=== PATIENT | male | born 1950 | race Caucasian/White ===

== ENCOUNTER → 2017-05-13 | Outpatient (CLI) | payer BC ==
[~2017-05-13] MED LIST: ANT25 PO; ASPCH81 PO; ENOX40IN SC; OXYC-57 PO
[2017-05-13 17:04] LABS: BASO % 0.3 %; BASO ABS # 0.02 K/uL (0-0.2); COMPLETE YES; EOS % 1.1 %; HEMATOCRIT 44.3 % (42-52); IG% 0.3 %; LYMPH % 24.9 %; LYMPH ABS # 1.58 K/uL (1.2-3.4); MEAN CELL VOLUME 94.3 fL (80-100); MEAN CORPUSCULAR HGB CONC 36.1 g/dl (32-36); MONO % 9.1 %; NEUT % 64.3 %; PLATELET COUNT 239 K/uL (130-400); WHITE BLOOD COUNT 6.35 K/uL (4.8-10.8)
[2017-05-13 17:17] LABS: BLOOD UREA NITROGEN 16 mg/dl (7-18); BUN/CREATININE RATIO 16.4 (10-20); CALCIUM 9.7 mg/dl (8.5-10.1); CARBON DIOXIDE 30 mmol/L (21-32); CHLORIDE 105 mmol/L (98-107); GLUCOSE 87 mg/dl (70-99); POTASSIUM 4.5 mmol/L (3.5-5.1); SODIUM 139 mmol/L (136-145)
[2017-05-13 20:28] LABS: LYME DISEASE AB IGG NEG (NEG); LYME DISEASE AB IGM NEG (NEG)
--- NOTE | 2017-05-17 12:24 | CODING QUERY MEDICAL NECESSITY ---
SUPPORTING DIAGNOSIS NEEDED A supporting diagnosis is required for the test/procedure performed on this patient in order for us to be reimbursed by the patient's insurance. Please provide a supporting diagnosis for the following test/procedure listed below next to the test name along with your signature. *If there is no additional diagnosis for this patient that would support the following test/procedure please document that below next to the test/procedure. Test(s)/Procedure(s) that require a supporting diagnosis: * VITAMIN B12 DIAGNOSIS: Provider Signature: Date: Thank you Rosa [place] [employer] Once completed, please kindly fax back to [phone] For questions please call [phone]
== END | disposition home or self-care (01) ==
LOC: C.LABBC 14:36
PROVIDERS: ATTEND Physician Assistant Medical
DX: R53.83 Other fatigue (principal)

== ENCOUNTER → 2017-11-28 | Outpatient (CLI) | payer BC ==
--- NOTE | 2017-11-28 11:38 | DIAGNOSTIC IMAGING REPORT ---
CHEST 2 VIEWS ROUTINE CLINICAL HISTORY: Atypical chest pain COMPARISON STUDY: 02/25/2008 FINDINGS: The cardiac and mediastinal contours are normal. There is no evidence of focal pulmonary consolidation. There is no evidence of failure. No pleural effusions are visualized.[ There is mild aortic tortuosity. There is a mild pectus deformity. IMPRESSION: No active disease in the chest. Electronically signed by: Albert Allen M.D. 11/28/2017 11:36 AM Dictated Date/Time: 11/28/2017 11:36 AM
== END | disposition home or self-care (01) ==
LOC: C.RADBC 11:20
PROVIDERS: ATTEND Nurse Practitioner Adult Health
DX: R07.9 Chest pain, unspecified (principal)

== ENCOUNTER 2023-10-09 19:25 | Inpatient (IN) ==
--- NOTE | 2023-10-09 19:36 | ED Triage Note ---
Date of Service October 09, 2023 Provider in Triage Author: Rick Marion History of Present Illness This patient was briefly evaluated while in triage. An abbreviated physical exam was performed. This patient is a 72-year-old Male who presents to the ED for evaluation of abdominal pain and cramping. No fever, but has felt cold. Symptoms started this morning after breakfast. No hx of abdominal surgery. Complains of vague shoulder pain b/l as well. No issues with ROM. Physical Exam Limited Triage Exam: VITALS: Vitals are noted on the nurse's note and reviewed by myself. Vital signs stable. GENERAL: Well-developed, well-nourished, white male, who is in no acute distress and resting comfortably. Patient is cooperative with the examination. HEART: Regular rate and rhythm without murmurs gallops or rubs. LUNGS: Clear to auscultation bilaterally without wheezes, rales or rhonchi. No retractions or accessory muscle use. NEURO: Patient was alert and oriented to person place and time. CN II through XII grossly intact. Initial orders for labs and / or imaging were placed and patient was placed in the waiting area until a bed is available. Please see further documentation for the full ED course. MDM / Impression Impression Impression: Intra-abdominal free air of unknown etiology, Lower abdominal pain, History of diverticulitis
[2023-10-09 20:04] LABS: Basophils # (auto) 0.04 K/uL (0.00-0.20); Basophils % (auto) 0.3 %; Eosinophils # (auto) 0.47 K/uL (0.00-0.50); Hematocrit (blood only) 44.6 % (42.0-52.0); Immature Granulocytes # (auto) 0.07 K/uL (0.01-0.20); Immature Granulocytes % (auto) 0.4 %; Lymphocytes # (auto) 0.79 K/uL (1.20-3.40); Mean Corpuscular Hemoglobin 33.9 pg (25.0-34.0); Mean Corpuscular Hgb Conc 35.9 g/dL (32.0-36.0); Mean Corpuscular Volume 94.5 fL (80.0-100.0); Mean Platelet Volume 9.3 fL (9.4-12.4); Monocytes # (auto) 0.86 K/uL (0.11-0.59); Monocytes % (auto) 5.4 %; Neutrophils # (auto) 13.57 K/uL (1.40-6.50); Neutrophils % (auto) 85.9 %; Platelet Count 238 K/uL (130-400); RDW Coefficient of Variation 11.8 % (11.5-14.5); Red Blood Count 4.72 M/uL (4.70-6.10)
[2023-10-09] MEDS ORDERED: SODIUM CHLORIDE 0.9% 1,000 ML IV ONE (20:07)
[2023-10-09 20:16] LABS: Albumin Globulin Ratio 1.5 (0.9-2); Albumin Level 4.5 gm/dl (3.4-5.0); BUN Creatinine Ratio 16.1 (10-20); Bilirubin,Total 0.7 mg/dl (0.2-1.0); Calcium 9.6 mg/dl (8.6-10.3); Creatinine Clr Calc Pharmacy 84.1 ml/min; Est GFR (African American) 101.3 ml/min; Est GFR (Non-African American) 87.4 ml/min; Potassium 3.8 mmol/L (3.5-5.1); Total Protein 7.5 gm/dl (6.0-8.3)
[2023-10-09] MEDS ORDERED: OPTIRAY 320 500ml IV ONE (20:31)
[2023-10-09 20:35] LABS: Bilirubin Direct 0.1 mg/dl (0-0.2)
--- NOTE | 2023-10-09 21:04 | CT Scan Report ---
Exam(s): CT ABDOMEN + PELVIS With Contrast IV Amt: 87 ml optiray 320 EXAM: CT Abdomen and Pelvis With Intravenous Contrast CLINICAL HISTORY: Reason for exam: abd pain. TECHNIQUE: Axial computed tomography images of the abdomen and pelvis with intravenous contrast. CTDI is 22.9 mGy and DLP is 1064.34 mGy-cm. Automated exposure control was utilized for the study. A dose lowering technique was utilized adhering to the principles of ALARA. CONTRAST: Patient received 87 ml optiray 320 of IV contrast COMPARISON: No relevant prior studies available. FINDINGS: Lung bases: Unremarkable. No mass. No consolidation. ABDOMEN: Liver: Unremarkable. No mass. Gallbladder and bile ducts: Unremarkable. No calcified stones. No ductal dilation. Pancreas: Unremarkable. No mass. No ductal dilation. Spleen: Unremarkable. No splenomegaly. Adrenals: Unremarkable. No mass. Kidneys and ureters: Renal cysts. No hydronephrosis. Stomach and bowel: Unremarkable. No obstruction. No mucosal thickening. PELVIS: Appendix: No findings to suggest acute appendicitis. Bladder: Unremarkable. No mass. Reproductive: Unremarkable as visualized. ABDOMEN and PELVIS: Intraperitoneal space: Free air in the abdomen, concerning for gastrointestinal perforation, given the absence of recent surgery. The site of perforation is suspected to be within the sigmoid colon (series 2 image 63). No significant fluid collection. Bones/joints: Degenerative changes of the spine. No acute fracture. No dislocation. Soft tissues: Unremarkable. Vasculature: Atherosclerotic changes of the aorta. No abdominal aortic aneurysm. Lymph nodes: Unremarkable. No enlarged lymph nodes. IMPRESSION: Free air in the abdomen, concerning for gastrointestinal perforation, given the absence of recent surgery. The site of perforation is suspected to be within the sigmoid colon (series 2 image 63). Electronically signed by: Terrell Watkins MD 10/09/23 21:03 PM
[2023-10-09 21:41] LABS: Adenovirus PCR Not Detected (NotDetected); Bordetella parapertussis PCR Not Detected (NotDetected); Bordetella pertussis PCR Not Detected (NotDetected); Chlamydia pneumoniae PCR Not Detected (NotDetected); Coronavirus 229E PCR Not Detected (NotDetected); Coronavirus CoV-2 (COVID19)PCR Not Detected (NotDetected); Coronavirus HKU1 PCR Not Detected (NotDetected); Coronavirus NL63 PCR Not Detected (NotDetected); Coronavirus OC43PCR Not Detected (NotDetected); Human Metapneumovirus PCR Not Detected (NotDetected); Influenza A PCR Not Detected (NotDetected); Influenza B PCR Not Detected (NotDetected); Mycoplasma pneumoniae PCR Not Detected (NotDetected); Parainfluenza Virus 1 PCR Not Detected (NotDetected); Parainfluenza Virus 2 PCR Not Detected (NotDetected); Parainfluenza Virus 3 PCR Not Detected (NotDetected); Parainfluenza Virus 4 PCR Not Detected (NotDetected); Respiratory Syncytial VirusPCR Not Detected (NotDetected); Rhinovirus/Enterovirus PCR Not Detected (NotDetected)
[2023-10-09 21:51] LABS: Appearance Urine Clear (Clear); Bilirubin Urine Negative (Negative); Blood Urine Negative (Negative); Color Urine Yellow; Glucose Urine UA Negative (Negative); Ketones Urine Negative (Negative); Leukocyte Esterase Urine Negative (Negative); Nitrite Urine Negative (Negative); Protein Urine Negative (Negative); Specific Gravity Urine 1.024 (1.000-1.030); Urobilinogen Urine Negative (Negative)
[2023-10-09] MEDS ORDERED: PIPERACILLIN/TAZOBACTAM 4.5 GM/100 ML BAG IV ONE (22:03)
[2023-10-09] MEDS ORDERED: MoRPHine SULFATE 4 MG/ML 1 ML CARP\\VIAL IV STA (22:48)
[2023-10-09] MEDS ORDERED: ACETAMINOPHEN 1,000 MG/100 ML VIAL IV STA (22:48)
[2023-10-09] MEDS ORDERED: ONDANSETRON INJ 2 MG/ML 2 ML VIAL IV PRN (22:51)
--- NOTE | 2023-10-09 23:33 | History & Physical Report ---
Date of Service October 09, 2023 Assessment & Plan (1) Intra-abdominal free air of unknown etiology: Plan: Discussed that the most likely source is his sigmoid colon. Currently, he does not have peritoneal signs on exam and pain level is mild (3/10) without zoya cotics. We discussed that generally surgical intervention is recommended for free air due to the risk of continued leakage. However, this operation would most likely result in a colostomy for 3-6 months after which another surgery would be needed to reconnect the ends. Risks of surgery including bleeding, infection, abscess formation, hernia, injury to other structures reviewed. We reviewed that surgical intervention is the more conservative option as it is guaranteed to take care of the leakage. The option of antibiotics alone was also reviewed. Understands that this may not work (he may get sicker and still require surgical intervention). We reviewed that his clinical exam, pain level and lab work would be monitored. If he continued to worsen, he would need surgery and a delay in surgery could increase the risk of complications such as infection or a more prolonged recovery. We discussed that we may not know how he responds for 1-2 days. Reviewed that, as he has no peritoneal signs on exam and mild pain, it is possible the leak has sealed and that antibiotics alone may work. All questions answered. After discussion, he prefers to try antibiotics first. Will admit, make npo, IVF resuscitation, monitor labs. Dr. Del Rio to take over tomorrow. History of Present Illness Chief Complaint: abdominal pain Primary Care Provider: Jeremy Del Rio DO 72 yr old man with history of constipation and diverticulitis presents with acute onset of generalized abdominal pain, worse in left lower quadrant which started this morning after eating. Notes he has been more tender on the left lower abdomen lately (sore if his lays her arm on it). This has been going on for a few weeks if not longer. This morning, after he had a normal bowel movement and breakfast, developed abdominal pain in mid abdomen. Pain was of mild intensity but would then get intermittent episodes of sharp pain that radiated down left lower abdomen into pelvis. This sharp pain was a 9/10 in intensity, would occur out of the blue, last less than a minute and then subside. He was able to continue with activities but noticed the pain more often when he rested or laid down. After dinner (chicken, mashed potatoes, salad), the pain persisted and he came to the ER. Currently, has not received any narcotics. Notes bloating, pain level is 3/10. No nausea, no vomiting. Mild fever (100.1 in ER). No prior colonoscopy - scheduled for January 2024. No prior abdominal operations. For his constipation, he generally takes metamucil daily. Allergies Allergy/AdvReac Type Severity Reaction Status Date / Time duloxetine Allergy Intermediate Headache Verified 10/09/23 22:45 sumatriptan Allergy Intermediate Headache Verified 10/09/23 22:45 topiramate [From Topamax] Allergy Unknown Change in Verified 10/09/23 22:45 mental status Home Medications Medication Instructions Recorded Confirmed Type ibuprofen 200 mg tablet 400 - 600 mg PO Q6H PRN Pain 03/02/21 10/09/23 History cranberry extract-vitamin C 250 1 cap PO QDL 03/07/21 10/09/23 History mg-60 mg capsule (Azo Cranberry Plus Vit C) elderberry fruit 200 mg capsule 200 mg PO QDL 03/07/21 10/09/23 History aspirin 81 mg tablet,delayed 81 mg PO QDL 04/28/21 10/09/23 History release multivitamin (Daily Multi-Vitamin 1 tab PO QDL 04/28/21 10/09/23 History tablet) cholecalciferol (vitamin D3) 50 50 mcg PO DAILY 10/09/23 10/09/23 History mcg (2,000 unit) capsule (Vitamin D3) ferrous sulfate 325 mg (65 mg 325 mg PO .Q WED 10/09/23 10/09/23 History iron) tablet (iron) Past Med/Surg History Medical History Cervical spinal stenosis Hyperlipidemia Slow to wake up after anesthesia Cervical osteoarthritis Cervicalgia Migraine-cluster headache syndrome Obstructive sleep apnea (adult) (pediatric) NO CPAP Restless legs syndrome Vertigo Surgical History History of esophagogastroduodenoscopy (EGD) History of tooth extraction S/P arthroscopic knee surgery RIGHT Family History Father Cancer Lung cancer Myocardial infarction Mother Colorectal cancer Stroke Denies family history of Ovarian cancer Prostate cancer Diabetes Breast cancer Social History Smoking Status: Never smoker Tobacco Type: Cigarettes Second Hand Exposure: No; Do You Dip or Chew Tobacco: No; Hx Alcohol Use: No Hx Substance Use: No Preferred Language: Lao Communication Ability: Effective Visual Impairment: Limited Hearing Ability: Normal Mapping Supervisor Required: No Beliefs That Will Affect Care: None marital status: Current Living Situation: Spouse current occupational status: retired How many Children do You have: 1 Feels Safe at Home: Yes Childhood Exposure to Second-Hand Smoke: Yes Diet: low carbohydrate and low salt caffeine: Yes during the past year weight has: remained stable Dental Care, Regularly: Yes Physical Activity Frequency: 1-2 Times per Week Seatbelt Use: always Sunscreen Use: No Assistive Devices: Glasses Review of Systems Constitutional: no chills and no sweats Eyes: no problem reported Respiratory: no problem reported Cardiovascular: no problem reported Gastrointestinal: as per Subjective / HPI Genitourinary: no problem reported Musculoskeletal: + neck pain Neurologic: + headache(s) Psychiatric: no problem reported Physical Exam Constitutional: WD/WN, vitals as above Eyes: PERRL, conjunctivae normal, anicteric sclerae Neck: normal visual inspection and trachea midline Respiratory: normal respiratory effort, lungs clear to auscultation Cardiovascular: RRR, no murmur, no edema Gastrointestinal (Abdomen): Inspection/Auscultation: abdomen normal to inspection, + abdomen distended (mild) and normal bowel sounds; no abdominal surgical incision Percussion/Palpation: + abdomen tender (mild in left lower quadrant, epigastrium and pelvis), abdomen soft and normal to percussion (no tenderness to percussion or movement); no guarding, abdomen not rigid and no hernia Musculoskeletal: no cyanosis or clubbing, extremities motor strength 5/5 Neurologic: awake; no focal motor deficits Psychiatric: A+Ox3, euthymic affect Results & Data Results & Data Vital Signs (Past 12 Hours) Vital Signs Temp Pulse Pulse Resp BP BP Pulse Ox 10/09/23 22:49 38.2 C H 108 H 18 144/92 H 99 10/09/23 22:30 109 H 18 98 10/09/23 22:00 108 H 15 98 10/09/23 21:30 106 H 14 98 10/09/23 21:30 155/89 H 10/09/23 21:00 147/86 H 10/09/23 21:00 105 H 16 95 10/09/23 20:41 96 10/09/23 20:21 103 H 10/09/23 20:17 105 H 16 98 10/09/23 20:03 98 10/09/23 19:29 37.1 C 107 H 22 170/86 H 98 O2 Del Method 10/09/23 22:49 Room Air 10/09/23 22:30 10/09/23 22:00 10/09/23 21:30 10/09/23 21:30 10/09/23 21:00 10/09/23 21:00 10/09/23 20:41 10/09/23 20:21 10/09/23 20:17 10/09/23 20:03 Room Air 10/09/23 19:29 Room Air Laboratory Results 10/09/23 10/09/23 10/09/23 Range/Units 21:36 20:27 19:46 WBC 15.80 H (4.8-10.8) K/ul RBC 4.72 (4.70-6.10) M/uL Hgb 16.0 (14.0-18.0) g/dl Hct 44.6 (42.0-52.0) % MCV 94.5 (80.0-100.0) fL MCH 33.9 (25.0-34.0) pg MCHC 35.9 (32.0-36.0) g/dL RDW Std Deviation 41.0 (36.4-46.3) fL RDW Coeff of All 11.8 (11.5-14.5) % Plt Count 238 (130-400) K/uL MPV 9.3 L (9.4-12.4) fL Immature Gran % (Auto) 0.4 % Neut % (Auto) 85.9 % Lymph % (Auto) 5.0 % [place] % (Auto) 5.4 % Eos % (Auto) 3.0 % Baso % (Auto) 0.3 % Neut # (Auto) 13.57 H (1.40-6.50) K/uL Lymph # (Auto) 0.79 L (1.20-3.40) K/uL [place] # (Auto) 0.86 H (0.11-0.59) K/uL Eos # (Auto) 0.47 (0.00-0.50) K/uL Baso # (Auto) 0.04 (0.00-0.20) K/uL Immature Gran # (Auto) 0.07 (0.01-0.20) K/uL Sodium 135 L (136-145) mmol/L Potassium 3.8 (3.5-5.1) mmol/L Chloride 101 (98-107) mmol/L Carbon Dioxide 27 (21-32) mmol/L Anion Gap 7 (3-11) BUN 14 (6-23) mg/dl Creatinine 0.87 (0.6-1.4) mg/dl Est Cr Clr Drug Dosing 84.1 ml/min Est GFR ( Amer) 101.3 ml/min Est GFR (Non-Af Amer) 87.4 ml/min BUN/Creatinine Ratio 16.1 (10-20) Glucose 135 H (70-99(Fasting)) mg/dl Calcium 9.6 (8.6-10.3) mg/dl Total Bilirubin 0.7 (0.2-1.0) mg/dl Direct Bilirubin 0.1 (0-0.2) mg/dl AST 24 (13-39) U/L ALT 21 (7-52) U/L Alkaline Phosphatase 59 (34-104) U/L Total Protein 7.5 (6.0-8.3) gm/dl Albumin 4.5 (3.4-5.0) gm/dl Globulin 3.0 (2.5-4.0) gm/dl Albumin/Globulin Ratio 1.5 (0.9-2) Lipase 13 (11-82) U/L Urine Color Yellow Urine Appearance Clear (Clear) Urine pH 7.0 (4.5-7.5) Ur Specific [place] 1.024 (1.000-1.030) Urine Protein Negative (Negative) Urine Glucose (UA) Negative (Negative) Urine Ketones Negative (Negative) Urine Blood Negative (Negative) Urine Nitrite Negative (Negative) Urine Bilirubin Negative (Negative) Urine Urobilinogen Negative (Negative) Ur Leukocyte Esterase Negative (Negative) Adenovirus (PCR) Not Detected (NotDetected) B. pertussis DNA (PCR) Not Detected (NotDetected) B.parapertussis DNA PCR Not Detected (NotDetected) C. pneumoniae DNA (PCR) Not Detected (NotDetected) Coronavirus OC43 (PCR) Not Detected (NotDetected) Coronavirus HKU1 (PCR) Not Detected (NotDetected) Coronavirus 229E (PCR) Not Detected (NotDetected) SARS-CoV-2 (PCR) Not Detected (NotDetected) Coronavirus NL63 (PCR) Not Detected (NotDetected) Human Metapneumovir PCR Not Detected (NotDetected) Influenza Type A (PCR) Not Detected (NotDetected) Influenza Type B (PCR) Not Detected (NotDetected) M. pneumoniae (PCR) Not Detected (NotDetected) Parainfluenza 1 (PCR) Not Detected (NotDetected) Parainfluenza 2 (PCR) Not Detected (NotDetected) Parainfluenza 3 (PCR) Not Detected (NotDetected) Parainfluenza 4 (PCR) Not Detected (NotDetected) RSV (PCR) Not Detected (NotDetected) Entero/Rhino (PCR) Not Detected (NotDetected) Diagnostic Findings I personally reviewed and interpreted the CT scan which shows free air above liver but minimal fluid or inflammatory change [phone] Scan Report Patient: PEPE CLARK Admit Date: 10/09/23 MR#: [id number] Address1: [address] [place] [address] Acct ID:[id number] Address2: Date: 1950 [facility] Zip: [place] [address] Age: 72 Location: ED Sex: M Room/Bed: Att Phy: Diagnosis: NECK TO SHOULDER PAIN, ABD PAIN Ashley Phy: Jeremy Del Rio DO Service Date: 10/09/23 Fam Phy: Interpreting Phy: Terrell Watkins MDAdmit Phy: Ordering Phy: Rick Marion PA-C cc: ~ ADDENDUM ADDENDUM: 10/09/23 21:25 Call Doctor Regarding Other, called Dr. Leach on 10/09 21: 24 (-05:00) Electronically signed by: Terrell Watkins MD Electronically signed by: Terrell Watkins MD 10/09/23 21:03 PM ADDENDUM END Exam(s): CT ABDOMEN + PELVIS With Contrast IV Amt: 87 ml optiray 320 EXAM: CT Abdomen and Pelvis With Intravenous Contrast CLINICAL HISTORY: Reason for exam: abd pain. TECHNIQUE: Axial computed tomography images of the abdomen and pelvis with intravenous contrast. CTDI is 22.9 mGy and DLP is 1064.34 mGy-cm. Automated exposure control was utilized for the study. A dose lowering technique was utilized adhering to the principles of ALARA. CONTRAST: Patient received 87 ml optiray 320 of IV contrast COMPARISON: No relevant prior studies available. FINDINGS: Lung bases: Unremarkable. No mass. No consolidation. ABDOMEN: Liver: Unremarkable. No mass. Gallbladder and bile ducts: Unremarkable. No calcified stones. No ductal dilation. Pancreas: Unremarkable. No mass. No ductal dilation. Spleen: Unremarkable. No splenomegaly. Adrenals: Unremarkable. No mass. Kidneys and ureters: Renal cysts. No hydronephrosis. Stomach and bowel: Unremarkable. No obstruction. No mucosal thickening. PELVIS: Appendix: No findings to suggest acute appendicitis. Bladder: Unremarkable. No mass. Reproductive: Unremarkable as visualized. ABDOMEN and PELVIS: Intraperitoneal space: Free air in the abdomen, concerning for gastrointestinal perforation, given the absence of recent surgery. The site of perforation is suspected to be within the sigmoid colon (series 2 image 63). No significant fluid collection. Bones/joints: Degenerative changes of the spine. No acute fracture. No dislocation. Soft tissues: Unremarkable. Vasculature: Atherosclerotic changes of the aorta. No abdominal aortic aneurysm. Lymph nodes: Unremarkable. No enlarged lymph nodes. IMPRESSION: Free air in the abdomen, concerning for gastrointestinal perforation, given the absence of recent surgery. The site of perforation is suspected to be within the sigmoid colon (series 2 image 63).
--- NOTE | 2023-10-10 00:20 | Emergency Department Note ---
Impression & Plan Intra-abdominal free air of unknown etiology, Lower abdominal pain, History of diverticulitis ED Provider Note NAME: PEPE CLARK AGE: 72 SEX: M ARRIVES VIA: Walk-In INFORMANT: Patient ED PROVIDER(S): Mitch Leach MD CHIEF COMPLAINT: Abdominal pain PLAN: Disposition: Admit MEDICAL DECISION MAKING: The patient is a pleasant 72-year-old gentleman with a past medical history of diverticulitis, hypertension, hyperlipidemia, MATT who presents to the emergency department via walk-in for evaluation of worsening lower abdominal pain that he reports began abruptly after eating breakfast today. He reports the pain progressed throughout the day and so presented for evaluation. Patient denies any prior history of abdominal surgeries. He reports having diverticulitis previously which per review of patient's record was in February 2021. He reports that he was treated for this and felt that he did not have any recurrence since then though he admits to having intermittent pain and left lower quadrant that has been minimal and never as severe or persistent. He reports a history of indigestion but denies any severe upper abdominal pain. He otherwise denies any recent fevers, chills, cough, congestion or urinary symptoms. Patient denies having any recent colonoscopy or procedure otherwise. On evaluation the patient is uncomfortable no distress, afebrile with stable vital signs. He appears clinically dry. He has mild lower abdominal tenderness without guarding or rebound. WBC 15.8 K, nonspecific. H/H and platelets within normal limits. Chemistry without metabolic acidosis. Electrolytes and LFTs unremarkable. Lipase not elevated. UA without evidence of infection. Respiratory viral panel/[employer] was negative. CT of the abdomen pelvis performed and demonstrates suspicion for perforation of the sigmoid colon with free air noted within the diaphragm. I did review this with [facility] radiology and agrees that statistically will be related to diverticulitis or colitis though there is no significant inflammatory change that suggest this at this time. I did review the patient's findings with him at the bedside. He agrees with plan for admission and surgical consultation. Blood cultures were obtained and treatment initiated with IV Zosyn. Case was discussed with general surgery on- call, Dr. Cheung. Appreciate consultation and recommendations. She did evaluate the patient at the bedside and had offered him option for surgery versus IV antibiotics and observation to assess response. The patient preferred the latter. Patient was admitted to general surgery for further management. Triage Nursing notes reviewed and agree them. Prior/external medical records reviewed Vital Signs: reviewed Differential diagnosis: Appendicitis, testicular torsion, infections, diverticulitis, UTI, obstruction, mesenteric ischemia, aortic pathology, inflammatory bowel disease, renal colic, PUD, pancreatitis, biliary pathology, hernia, volvulus, constipation, as well as other pathologies. ER treatment provided: See below. Diagnostics interpreted by me: ECG: Sinus tachycardia, 104 bpm, no ectopy, no overt ST elevation or depression, QTc 423, QRS 82 Cardiac Monitoring: An order for continuous cardiac monitoring was placed and demonstrated Sinus tachycardia, 104 bpm, no ectopy. Laboratory studies: See below Imaging studies: See below Consultation(s): General surgery, Dr. Cheung HPI: The patient is a pleasant 72-year-old gentleman with a past medical history of diverticulitis, hypertension, hyperlipidemia, MATT who presents to the emergency department via walk-in for evaluation of worsening lower abdominal pain that he reports began abruptly after eating breakfast today. He reports the pain progressed throughout the day and so presented for evaluation. Patient denies any prior history of abdominal surgeries. He reports having diverticulitis previously which per review of patient's record was in February 2021. He reports that he was treated for this and felt that he did not have any recurrence since then though he admits to having intermittent pain and left lower quadrant that has been minimal and never as severe or persistent. He reports a history of indigestion but denies any severe upper abdominal pain. He otherwise denies any recent fevers, chills, cough, congestion or urinary symptoms. Patient denies having any recent colonoscopy or procedure otherwise. ROS: See above HPI for pertinent positives & negatives. A total of 10 systems reviewed and were otherwise negative. VITALS:See Below PHYSICAL EXAMINATION: GENERAL: Awake, alert, uncomfortable-appearing, in no distress HENT: Normocephalic, atraumatic. Oropharynx with dry mucous membranes and otherwise unremarkable. EYES: Normal conjunctiva. Sclera non-icteric. NECK: Supple. No nuchal rigidity. FROM. No JVD. RESPIRATORY: Clear to auscultation. CARDIAC: Regular rate, normal rhythm. Extremities warm and well perfused. Pulses equal. ABDOMEN: Soft, non-distended. Mild lower abdominal tenderness to palpation. No rebound or guarding. No masses. RECTAL: Deferred. MUSCULOSKELETAL: Chest examination reveals no tenderness. The back is symmetrical on inspection without obvious abnormality. There is no CVA tenderness to palpation. No joint edema. LOWER EXTREMITIES: Calves are equal size bilaterally and non-tender. No edema. No discoloration. NEURO: Normal sensorium. No sensory or motor deficits noted. SKIN: No rash or jaundice noted. Mitch Leach MD Past Med/Surg History Medical History Cervical spinal stenosis Hyperlipidemia Slow to wake up after anesthesia Cervical osteoarthritis Cervicalgia Migraine-cluster headache syndrome Obstructive sleep apnea (adult) (pediatric) NO CPAP Restless legs syndrome Vertigo Surgical History History of esophagogastroduodenoscopy (EGD) History of tooth extraction S/P arthroscopic knee surgery RIGHT Family History Father Cancer Lung cancer Myocardial infarction Mother Colorectal cancer Stroke Denies family history of Ovarian cancer Prostate cancer Diabetes Breast cancer Social History Smoking Status: Never smoker Tobacco Type: Cigarettes Second Hand Exposure: No; Do You Dip or Chew Tobacco: No; Hx Alcohol Use: No Hx Substance Use: No Preferred Language: Frisian Communication Ability: Effective Visual Impairment: Limited Hearing Ability: Normal Rn L And D Required: No Beliefs That Will Affect Care: None marital status: Current Living Situation: Spouse current occupational status: retired How many Children do You have: 1 Feels Safe at Home: Yes Childhood Exposure to Second-Hand Smoke: Yes Diet: low carbohydrate and low salt caffeine: Yes during the past year weight has: remained stable Dental Care, Regularly: Yes Physical Activity Frequency: 1-2 Times per Week Seatbelt Use: always Sunscreen Use: No Assistive Devices: Glasses Allergies Allergies Allergy/AdvReac Type Severity Reaction Status Date / Time duloxetine Allergy Intermediate Headache Verified 10/09/23 22:45 sumatriptan Allergy Intermediate Headache Verified 10/09/23 22:45 topiramate [From Topamax] Allergy Unknown Change in Verified 10/09/23 22:45 mental status Home Meds Home Medications Medication Instructions Recorded Confirmed ibuprofen 200 mg tablet 400 - 600 mg PO Q6H PRN Pain 03/02/21 10/09/23 cranberry extract-vitamin C 250 1 cap PO QDL 03/07/21 10/09/23 mg-60 mg capsule (Azo Cranberry Plus Vit C) elderberry fruit 200 mg capsule 200 mg PO QDL 03/07/21 10/09/23 aspirin 81 mg tablet,delayed 81 mg PO QDL 04/28/21 10/09/23 release multivitamin (Daily Multi-Vitamin 1 tab PO QDL 04/28/21 10/09/23 tablet) cholecalciferol (vitamin D3) 50 50 mcg PO DAILY 10/09/23 10/09/23 mcg (2,000 unit) capsule (Vitamin D3) ferrous sulfate 325 mg (65 mg 325 mg PO .Q WED 10/09/23 10/09/23 iron) tablet (iron) Results & Data (ED) Vital Signs Vital Signs - 24 hr 10/09/23 19:29 10/09/23 20:03 10/09/23 20:17 Temperature 37.1 C Temperature Source Temporal Artery Scan Pulse Rate 107 H 105 H Pulse Rate [Apical] Pulse Rate from SpO2 Sensor 107 H Respiratory Rate 22 16 Respiratory Effort / Characteristics Respiratory Depth Blood Pressure 170/86 H Blood Pressure [Left Arm] Blood Pressure Mean 114 Blood Pressure Mean [Left Arm] Pulse Oximetry 98 98 98 Oxygen Delivery Method Room Air Room Air Sepsis Recent Fever Within 48 Hours No Sepsis New/Unexplained Change in Mental Status No Sepsis Action Taken by Nursing Physician Notified 10/09/23 20:21 10/09/23 20:41 10/09/23 21:00 Temperature Temperature Source Pulse Rate 103 H 105 H Pulse Rate [Apical] Pulse Rate from SpO2 Sensor 110 H 104 H Respiratory Rate 16 Respiratory Effort / Characteristics Respiratory Depth Blood Pressure Blood Pressure [Left Arm] Blood Pressure Mean Blood Pressure Mean [Left Arm] Pulse Oximetry 96 95 Oxygen Delivery Method Sepsis Recent Fever Within 48 Hours Sepsis New/Unexplained Change in Mental Status Sepsis Action Taken by Nursing 10/09/23 21:00 10/09/23 21:30 10/09/23 21:30 Temperature Temperature Source Pulse Rate 106 H Pulse Rate [Apical] Pulse Rate from SpO2 Sensor 106 H Respiratory Rate 14 Respiratory Effort / Characteristics Respiratory Depth Blood Pressure 147/86 H 155/89 H Blood Pressure [Left Arm] Blood Pressure Mean 108 120 Blood Pressure Mean [Left Arm] Pulse Oximetry 98 Oxygen Delivery Method Sepsis Recent Fever Within 48 Hours Sepsis New/Unexplained Change in Mental Status Sepsis Action Taken by Nursing 10/09/23 22:00 10/09/23 22:30 10/09/23 22:49 Temperature 38.2 C H Temperature Source Oral Pulse Rate 108 H 109 H Pulse Rate [Apical] 108 H Pulse Rate from SpO2 Sensor 110 H 109 H Respiratory Rate 15 18 18 Respiratory Effort / Characteristics Respiratory Depth Normal Blood Pressure Blood Pressure [Left Arm] 144/92 H Blood Pressure Mean Blood Pressure Mean [Left Arm] 109 Pulse Oximetry 98 98 99 Oxygen Delivery Method Room Air Sepsis Recent Fever Within 48 Hours Sepsis New/Unexplained Change in Mental Status Sepsis Action Taken by Nursing 10/10/23 00:05 10/10/23 00:21 Temperature Temperature Source Pulse Rate Pulse Rate [Apical] 92 H Pulse Rate from SpO2 Sensor Respiratory Rate 18 Respiratory Effort / Characteristics Non-Labored Respiratory Depth Normal Blood Pressure Blood Pressure [Left Arm] 130/81 Blood Pressure Mean Blood Pressure Mean [Left Arm] 97 Pulse Oximetry 95 Oxygen Delivery Method Room Air Room Air Sepsis Recent Fever Within 48 Hours Sepsis New/Unexplained Change in Mental Status Sepsis Action Taken by Nursing Laboratory Data Attestation: I reviewed the patient's lab results. 10/09/23 19:46 10/09/23 19:46 Lab Results 10/09/23 10/09/23 10/09/23 Range/Units 19:46 20:27 21:36 WBC 15.80 H (4.8-10.8) K/ul RBC 4.72 (4.70-6.10) M/uL Hgb 16.0 (14.0-18.0) g/dl Hct 44.6 (42.0-52.0) % MCV 94.5 (80.0-100.0) fL MCH 33.9 (25.0-34.0) pg MCHC 35.9 (32.0-36.0) g/dL RDW Std Deviation 41.0 (36.4-46.3) fL RDW Coeff of All 11.8 (11.5-14.5) % Plt Count 238 (130-400) K/uL MPV 9.3 L (9.4-12.4) fL Immature Gran % (Auto) 0.4 % Neut % (Auto) 85.9 % Lymph % (Auto) 5.0 % Sullivan % (Auto) 5.4 % Eos % (Auto) 3.0 % Baso % (Auto) 0.3 % Neut # (Auto) 13.57 H (1.40-6.50) K/uL Lymph # (Auto) 0.79 L (1.20-3.40) K/uL Sullivan # (Auto) 0.86 H (0.11-0.59) K/uL Eos # (Auto) 0.47 (0.00-0.50) K/uL Baso # (Auto) 0.04 (0.00-0.20) K/uL Immature Gran # (Auto) 0.07 (0.01-0.20) K/uL Sodium 135 L (136-145) mmol/L Potassium 3.8 (3.5-5.1) mmol/L Chloride 101 (98-107) mmol/L Carbon Dioxide 27 (21-32) mmol/L Anion Gap 7 (3-11) BUN 14 (6-23) mg/dl Creatinine 0.87 (0.6-1.4) mg/dl Est Cr Clr Drug Dosing 84.1 ml/min Est GFR ( Amer) 101.3 ml/min Est GFR (Non-Af Amer) 87.4 ml/min BUN/Creatinine Ratio 16.1 (10-20) Glucose 135 H (70-99(Fasting)) mg/dl Calcium 9.6 (8.6-10.3) mg/dl Total Bilirubin 0.7 (0.2-1.0) mg/dl Direct Bilirubin 0.1 (0-0.2) mg/dl AST 24 (13-39) U/L ALT 21 (7-52) U/L Alkaline Phosphatase 59 (34-104) U/L Total Protein 7.5 (6.0-8.3) gm/dl Albumin 4.5 (3.4-5.0) gm/dl Globulin 3.0 (2.5-4.0) gm/dl Albumin/Globulin Ratio 1.5 (0.9-2) Lipase 13 (11-82) U/L Urine Color Yellow Urine Appearance Clear (Clear) Urine pH 7.0 (4.5-7.5) Ur Specific [place] 1.024 (1.000-1.030) Urine Protein Negative (Negative) Urine Glucose (UA) Negative (Negative) Urine Ketones Negative (Negative) Urine Blood Negative (Negative) Urine Nitrite Negative (Negative) Urine Bilirubin Negative (Negative) Urine Urobilinogen Negative (Negative) Ur Leukocyte Esterase Negative (Negative) Adenovirus (PCR) Not Detected (NotDetected) B. pertussis DNA (PCR) Not Detected (NotDetected) B.parapertussis DNA PCR Not Detected (NotDetected) C. pneumoniae DNA (PCR) Not Detected (NotDetected) Coronavirus OC43 (PCR) Not Detected (NotDetected) Coronavirus HKU1 (PCR) Not Detected (NotDetected) Coronavirus 229E (PCR) Not Detected (NotDetected) SARS-CoV-2 (PCR) Not Detected (NotDetected) Coronavirus NL63 (PCR) Not Detected (NotDetected) Human Metapneumovir PCR Not Detected (NotDetected) Influenza Type A (PCR) Not Detected (NotDetected) Influenza Type B (PCR) Not Detected (NotDetected) M. pneumoniae (PCR) Not Detected (NotDetected) Parainfluenza 1 (PCR) Not Detected (NotDetected) Parainfluenza 2 (PCR) Not Detected (NotDetected) Parainfluenza 3 (PCR) Not Detected (NotDetected) Parainfluenza 4 (PCR) Not Detected (NotDetected) RSV (PCR) Not Detected (NotDetected) Entero/Rhino (PCR) Not Detected (NotDetected) Administered Medications Lactated Ringer's (Lr) 1,000 mls @ 125 mls/hr IV .Q8H KARAN Stop: 11/08/23 22:59 Last Admin: 10/10/23 00:24 Dose: 125 mls/hr Documented By: ACACIA Ondansetron HCl (Ondansetron Inj 2 Mg/Ml 2 Ml Vial) 4 mg IV Q4H PRN PRN Reason: Nausea Stop: 11/08/23 22:50 Last Admin: 10/10/23 00:08 Dose: 4 mg Documented By: ACACIA Discontinued Medications Sodium Chloride (Nss) 1,000 mls @ 999 mls/hr IV .Q1H1M ONE Stop: 10/09/23 21:07 Last Infusion: 10/09/23 21:40 Dose: Infused Documented By: Admin: 10/09/23 20:40 Dose: 999 mls/hr Documented By: GRACIELA Piperacillin Sod/Tazobactam Sod (Zosyn) 4.5 gm in 100 mls @ 200 mls/hr IV NOW ONE Stop: 10/09/23 22:32 Last Infusion: 10/09/23 23:27 Dose: Infused Documented By: Admin: 10/09/23 22:57 Dose: 200 mls/hr Documented By: ACACIA Acetaminophen (Ofirmev) 1,000 mg in 100 mls @ 400 mls/hr IV NOW STA Stop: 10/09/23 23:02 Last Infusion: 10/09/23 23:18 Dose: Infused Documented By: Admin: 10/09/23 22:59 Dose: 400 mls/hr Documented By: ACACIA Ioversol (Optiray 320 500ml) 87 ml IV ONCE ONE Stop: 10/09/23 20:32 Last Admin: 10/09/23 20:32 Dose: 87 ml Documented By: FLORES Morphine Sulfate (Morphine Sulfate 4 Mg/Ml 1 Ml Carp\Vial) 4 mg IV NOW STA Stop: 10/09/23 22:49 Last Admin: 10/10/23 00:08 Dose: 4 mg Documented By: ACACIA Imaging Data Radiologist's Impression: Abdomen/Pelvis CT 10/09/23 19:36 Exam(s): CT ABDOMEN + PELVIS With Contrast IV Amt: 87 ml optiray 320 EXAM: CT Abdomen and Pelvis With Intravenous Contrast CLINICAL HISTORY: Reason for exam: abd pain. TECHNIQUE: Axial computed tomography images of the abdomen and pelvis with intravenous contrast. CTDI is 22.9 mGy and DLP is 1064.34 mGy-cm. Automated exposure control was utilized for the study. A dose lowering technique was utilized adhering to the principles of ALARA. CONTRAST: Patient received 87 ml optiray 320 of IV contrast COMPARISON: No relevant prior studies available. FINDINGS: Lung bases: Unremarkable. No mass. No consolidation. ABDOMEN: Liver: Unremarkable. No mass. Gallbladder and bile ducts: Unremarkable. No calcified stones. No ductal dilation. Pancreas: Unremarkable. No mass. No ductal dilation. Spleen: Unremarkable. No splenomegaly. Adrenals: Unremarkable. No mass. Kidneys and ureters: Renal cysts. No hydronephrosis. Stomach and bowel: Unremarkable. No obstruction. No mucosal thickening. PELVIS: Appendix: No findings to suggest acute appendicitis. Bladder: Unremarkable. No mass. Reproductive: Unremarkable as visualized. ABDOMEN and PELVIS: Intraperitoneal space: Free air in the abdomen, concerning for gastrointestinal perforation, given the absence of recent surgery. The site of perforation is suspected to be within the sigmoid colon (series 2 image 63). No significant fluid collection. Bones/joints: Degenerative changes of the spine. No acute fracture. No dislocation. Soft tissues: Unremarkable. Vasculature: Atherosclerotic changes of the aorta. No abdominal aortic aneurysm. Lymph nodes: Unremarkable. No enlarged lymph nodes. IMPRESSION: Free air in the abdomen, concerning for gastrointestinal perforation, given the absence of recent surgery. The site of perforation is suspected to be within the sigmoid colon (series 2 image 63). Electronically signed by: Terrell Watkins MD 10/09/23 21:03 PM Discharge Plan Visit Data Chief Complaint: Abdominal Pain Stated Complaint: NECK TO SHOULDER PAIN, ABD PAIN ED Provider: Mitch Leach Discharge Problem: Intra-abdominal free air of unknown etiology, Lower abdominal pain, History of diverticulitis Discharge Instructions Interventions: ED Discharge Assessment Last Done: 10/10/23 00:21 Forms Stand Alone Forms: [facility] [employer] Prescriptions Prescriptions: No Action cranberry extract-vitamin C [Azo Cranberry Plus Vit C] 250-60 mg capsule 1 cap PO QDL ibuprofen 200 mg Tablet 400 - 600 mg PO Q6H PRN (Reason: Pain) elderberry fruit 200 mg capsule 200 mg PO QDL multivitamin [Daily Multi-Vitamin] tablet 1 tab PO QDL aspirin 81 mg tablet,delayed release (DR/EC) 81 mg PO QDL ferrous sulfate [iron] 325 mg (65 mg iron) Tablet 325 mg PO .Q WED cholecalciferol (vitamin D3) [Vitamin D3] 50 mcg (2,000 unit) Capsule 50 mcg PO DAILY Referrals Referrals: Jeremy Del Rio DO [Primary Care Provider] -
[2023-10-10] MEDS: LACTATED RINGER'S 1,000 ML IV SCH ×3 (00:24→18:14)
[2023-10-10] MEDS ORDERED: KETOROLAC TROMETHAMINE 15 MG/ML VIAL IV PRN (02:00)
[2023-10-10] MEDS ORDERED: MoRPHine SULFATE 2 MG/ML CARP IV PRN (02:00)
[2023-10-10] MEDS ORDERED: ONDANSETRON INJ 2 MG/ML 2 ML VIAL IV PRN (02:00)
[2023-10-10 03:45] LABS: Basophils # (auto) 0.02 K/uL (0.00-0.20); Basophils % (auto) 0.1 %; Hematocrit (blood only) 40.1 % (42.0-52.0); Hemoglobin 14.2 g/dl (14.0-18.0); Immature Granulocytes # (auto) 0.06 K/uL (0.01-0.20); Immature Granulocytes % (auto) 0.4 %; Lymphocytes # (auto) 1.14 K/uL (1.20-3.40); Lymphocytes % (auto) 7.6 %; Mean Corpuscular Hemoglobin 33.3 pg (25.0-34.0); Mean Corpuscular Hgb Conc 35.4 g/dL (32.0-36.0); Mean Corpuscular Volume 94.1 fL (80.0-100.0); Mean Platelet Volume 9.5 fL (9.4-12.4); Monocytes # (auto) 0.85 K/uL (0.11-0.59); Monocytes % (auto) 5.7 %; Neutrophils # (auto) 12.86 K/uL (1.40-6.50); Neutrophils % (auto) 86.2 %; Platelet Count 205 K/uL (130-400); RDW Coefficient of Variation 11.9 % (11.5-14.5); RDW Standard Deviation 41.4 fL (36.4-46.3); Red Blood Count 4.26 M/uL (4.70-6.10); White Blood Count 14.93 K/ul (4.8-10.8)
[2023-10-10 03:57] LABS: BUN Creatinine Ratio 14.3 (10-20); Creatinine Clr Calc Pharmacy 95.1 ml/min; Est GFR (African American) 106.6 ml/min; Est GFR (Non-African American) 91.9 ml/min; Potassium 3.8 mmol/L (3.5-5.1)
[2023-10-10] MEDS: PIPERACILLIN/TAZOBACTAM 4.5 GM in DEXTROSE 5% MINI-B 100 ML IV SCH ×3 (04:32→20:10)
[2023-10-10] MEDS: MoRPHine SULFATE 4 MG/ML 1 ML CARP\\VIAL IV PRN ×2 (04:53→11:23)
[2023-10-10] MEDS ORDERED: Nursing to Pharmacy Communication SCH (05:15)
--- NOTE | 2023-10-10 06:51 | XRay Report ---
XR chest 1V portable HISTORY: shoulder pain COMPARISON: Chest 11/28/2017. FINDINGS: Pneumoperitoneum is present. There is no pneumothorax. No pleural effusions. The heart is t op normal in size. Mildly tortuous thoracic aorta. The lungs are clear. No acute fractures. IMPRESSION: Pneumoperitoneum. This is better appreciated on the same day abdomen and pelvis CT. ACT 112: Negative or not required by law. Electronically signed by: Jagdeep Gracia M.D. 10/10/2023 6:49 AM
--- NOTE | 2023-10-10 09:01 | Electrocardiogram Report ---
Test Reason : Blood Pressure : / mmHG Vent. Rate : 104 BPM Atrial Rate : 104 BPM P-R Int : 208 ms QRS Dur : 082 ms QT Int : 322 ms P-R-T Axes : 065 025 043 degrees QTc Int : 423 ms Sinus tachycardia Left atrial enlargement Borderline ECG When compared with ECG of 25-FEB-2008 15:11, Vent. rate has increased BY 41 BPM Confirmed by Manpreet Jeff ([id number]) on 10/10/2023 9:00:53 AM Referred By: REFERRED SELF Confirmed By:Manpreet Jeff
--- NOTE | 2023-10-10 09:41 | Surgery Progress Note ---
Date of Service October 10, 2023 Assessment & Plan (1) History of diverticulitis: Plan: afebrile WBC trending down clinically is doing OK no signs of deteriration passing trial of abx thus far c/o GOMEZ, add tylenol Admission and Anticipated Discharge Date Admission Date: October 09, 2023 Subjective pain better and intermittent no N/V Review of Systems Constitutional: no fever and no chills Respiratory: no cough and no dyspnea Cardiovascular: no chest pain Gastrointestinal: no nausea and no vomiting Genitourinary: no dysuria Musculoskeletal: no back pain Neurologic: no localized weakness and no generalized weakness Psychiatric: no behavioral changes Physical Exam Constitutional: WD/WN, vitals as above Eyes: PERRL, conjunctivae normal, anicteric sclerae ENMT: external ear and nose normal, oropharynx normal Neck: trachea midline Respiratory: normal respiratory effort, lungs clear to auscultation Cardiovascular: RRR, no murmur, no edema Gastrointestinal (Abdomen): Inspection/Auscultation: abdomen normal to inspection, + abdomen distended and normal bowel sounds Percussion/Palpation: + abdomen tender and abdomen soft; no guarding and abdomen not rigid Musculoskeletal: Head/Neck/Chest: normocephalic and head atraumatic Results & Data Vital Signs (Past 12 Hours) Vital Signs Temp Pulse Pulse Pulse Resp BP Pulse Ox 10/10/23 08:11 37.1 C 77 18 148/57 H 98 10/10/23 01:00 10/10/23 01:00 37.2 C 85 18 150/78 H 96 10/10/23 00:21 10/10/23 00:05 92 H 18 130/81 95 10/09/23 22:49 38.2 C H 108 H 18 144/92 H 99 10/09/23 22:30 109 H 18 98 10/09/23 22:00 108 H 15 98 O2 Del Method 10/10/23 08:11 Room Air 10/10/23 01:00 Room Air 10/10/23 01:00 Room Air 10/10/23 00:21 Room Air 10/10/23 00:05 Room Air 10/09/23 22:49 Room Air 10/09/23 22:30 10/09/23 22:00 Diagnostic Findings [facility], [place] [phone] XRay Report Patient: PEPE CLARK Admit Date: 10/09/23 MR#: [id number] Address1: [address] [facility] Acct ID:[id number] Address2: Date: 1950 [facility] Zip: [place] [address] Age: 72 Location: 3N Sex: M Room/Bed: [facility] Att Phy: Hubert Del Rio M.D. Diagnosis: ABDOMINAL PAIN Ashley Phy: Jeremy Del Rio DO Service Date: 10/09/23 Fam Phy: Interpreting Phy: Jagdeep Gracia MDAdmit Phy: Chelsy Cheung MD Ordering Phy: Mitch Leach M.D. cc: ~ XR chest 1V portable HISTORY: shoulder pain COMPARISON: Chest 11/28/2017. FINDINGS: Pneumoperitoneum is present. There is no pneumothorax. No pleural effusions. The heart is top normal in size. Mildly tortuous thoracic aorta. The lungs are clear. No acute fractures. IMPRESSION: Pneumoperitoneum. This is better appreciated on the same day abdomen and pelvis CT.
[2023-10-10] MEDS: ACETAMINOPHEN 500 MG TAB PO PRN (10:36)
[2023-10-10] MEDS: IBUPROFEN 600 MG TAB PO PRN (18:27)
[2023-10-10] MEDS ORDERED: IBUPROFEN 600 MG TAB PO SCH (20:00)
[2023-10-11] MEDS: LACTATED RINGER'S 1,000 ML IV SCH ×3 (02:41→18:16)
[2023-10-11] MEDS: PIPERACILLIN/TAZOBACTAM 4.5 GM in DEXTROSE 5% MINI-B 100 ML IV SCH ×3 (03:04→19:37)
[2023-10-11] MEDS: IBUPROFEN 600 MG TAB PO PRN ×3 (06:01→23:47)
[2023-10-11 07:24] LABS: Basophils # (auto) 0.02 K/uL (0.00-0.20); Basophils % (auto) 0.2 %; Eosinophils # (auto) 0.03 K/uL (0.00-0.50); Eosinophils % (auto) 0.3 %; Hematocrit (blood only) 38.1 % (42.0-52.0); Hemoglobin 13.6 g/dl (14.0-18.0); Immature Granulocytes # (auto) 0.04 K/uL (0.01-0.20); Immature Granulocytes % (auto) 0.3 %; Lymphocytes # (auto) 0.64 K/uL (1.20-3.40); Lymphocytes % (auto) 5.5 %; Mean Corpuscular Hemoglobin 33.4 pg (25.0-34.0); Mean Corpuscular Hgb Conc 35.7 g/dL (32.0-36.0); Mean Corpuscular Volume 93.6 fL (80.0-100.0); Mean Platelet Volume 9.7 fL (9.4-12.4); Monocytes # (auto) 0.86 K/uL (0.11-0.59); Monocytes % (auto) 7.4 %; Neutrophils # (auto) 9.97 K/uL (1.40-6.50); Neutrophils % (auto) 86.3 %; Platelet Count 183 K/uL (130-400); RDW Coefficient of Variation 11.7 % (11.5-14.5); RDW Standard Deviation 40.5 fL (36.4-46.3); Red Blood Count 4.07 M/uL (4.70-6.10); White Blood Count 11.56 K/ul (4.8-10.8)
[2023-10-11 07:40] LABS: BUN Creatinine Ratio 11.1 (10-20); Calcium 9.2 mg/dl (8.6-10.3); Creatinine Clr Calc Pharmacy 101.7 ml/min; Est GFR (African American) 109.5 ml/min; Est GFR (Non-African American) 94.5 ml/min; Potassium 4.1 mmol/L (3.5-5.1)
--- NOTE | 2023-10-11 14:25 | Surgery Progress Note ---
Date of Service October 11, 2023 Assessment & Plan (1) History of diverticulitis: Plan: perforated diverticulitis responding to IV abx; con't at least over the weekend Admission and Anticipated Discharge Date Admission Date: October 09, 2023 Subjective feels better pain improved Review of Systems Constitutional: no fever and no chills Respiratory: no cough and no dyspnea Cardiovascular: no chest pain Gastrointestinal: + abdominal pain; no nausea and no vomit ing Genitourinary: no dysuria Neurologic: no localized weakness and no generalized weakness Psychiatric: no behavioral changes Physical Exam Constitutional: WD/WN, vitals as above Eyes: PERRL, conjunctivae normal, anicteric sclerae Respiratory: normal respiratory effort, lungs clear to auscultation Cardiovascular: RRR, no murmur, no edema Gastrointestinal (Abdomen): Inspection/Auscultation: abdomen normal to inspection and normal bowel sounds; abdomen not distended Percussion/Palpation: + abdomen tender and abdomen soft; no guarding and abdomen not rigid Musculoskeletal: Head/Neck/Chest: normocephalic and head atraumatic Skin: no rashes, warm and dry Results & Data Vital Signs (Past 12 Hours) Vital Signs Temp Pulse Resp BP Pulse Ox O2 Del Method 10/11/23 07:26 36.8 C 62 16 125/73 97 Room Air
[2023-10-11] MEDS: DOCUSATE SODIUM 100 MG CAP PO SCH (19:44)
[2023-10-12] MEDS: LACTATED RINGER'S 1,000 ML IV SCH ×3 (01:17→17:34)
[2023-10-12] MEDS: PIPERACILLIN/TAZOBACTAM 4.5 GM in DEXTROSE 5% MINI-B 100 ML IV SCH ×3 (04:58→19:44)
--- NOTE | 2023-10-12 06:01 | Surgery Progress Note ---
Date of Service October 12, 2023 Assessment & Plan (1) History of diverticulitis: Plan: Patient has been admitted on the hospitalist service. Patient is noted to have perforated diverticulitis on CT scan on 10/09/2023 Thus far the patient has been treated with conservative measures which have resulted in improvement Would maintain the patient on clear liquid diet for the present time Continue intravenous fluids until diet can be advanced further Continue antibiotics in form of Zosyn Continue analgesics Continue antiemetics Mobilize as able Check a.m. labs when available Admission and Anticipated Discharge Date Admission Date: October 09, 2023 Supervising Physician Co-Signing Physician Notes I have seen and examined this patient. I agree with the above. He remains afebrile and HD stable. He continues to feel more improved since admission. He admits to passing flatus and is passing some mucus per anus. Abdomen is soft with mild distention and is still TTP right and left LLQ with voluntary guarding. No peritonitis. Leukocytosis is resolved this am He continues to tolerate clear liquids and will stay on clears for today Will f/u in the am Subjective Patient notes that his abdominal pain is markedly improved since admission. He is currently tolerating clear liquid diet without nausea or vomiting. He is passing flatus but has not had a bowel movement since admission. He denies any fevers, shakes, or chills. Physical Exam Gastrointestinal (Abdomen): Abdomen is soft, nonrigid and nondistended. Bowel sounds are present. Minimal tenderness is noted with palpation in the lower abdomen which the patient notes is a marked improvement since admission. There is no rebound tenderness or guarding Results & Data Vital Signs (Past 12 Hours) Vital Signs Temp Pulse Resp BP Pulse Ox O2 Del Method 10/11/23 19:53 36.7 C 66 16 138/82 96 Room Air PG Care Time/CCT Total # of Minutes Spent Total Time Spent with Patient: Total time spent is greater than 50% in coordination of care (as documented) at patient's floor/unit and/or counseling patient: Coding Level of Care Code 71610 SUB INP/OBS CARE 1/25MIN Diagnoses History of diverticulitis Z87.19
[2023-10-12 06:21] LABS: Basophils # (auto) 0.04 K/uL (0.00-0.20); Basophils % (auto) 0.4 %; Eosinophils % (auto) 4.3 %; Hematocrit (blood only) 35.7 % (42.0-52.0); Hemoglobin 12.9 g/dl (14.0-18.0); Immature Granulocytes # (auto) 0.03 K/uL (0.01-0.20); Immature Granulocytes % (auto) 0.3 %; Lymphocytes # (auto) 1.11 K/uL (1.20-3.40); Lymphocytes % (auto) 11.9 %; Mean Corpuscular Hemoglobin 33.5 pg (25.0-34.0); Mean Corpuscular Hgb Conc 36.1 g/dL (32.0-36.0); Mean Corpuscular Volume 92.7 fL (80.0-100.0); Mean Platelet Volume 9.7 fL (9.4-12.4); Monocytes # (auto) 0.78 K/uL (0.11-0.59); Monocytes % (auto) 8.4 %; Neutrophils # (auto) 6.96 K/uL (1.40-6.50); Neutrophils % (auto) 74.7 %; Platelet Count 179 K/uL (130-400); RDW Coefficient of Variation 11.8 % (11.5-14.5); Red Blood Count 3.85 M/uL (4.70-6.10); White Blood Count 9.32 K/ul (4.8-10.8)
[2023-10-12 06:54] LABS: BUN Creatinine Ratio 10.3 (10-20); Creatinine Clr Calc Pharmacy 107.7 ml/min; Est GFR (African American) 112.1 ml/min; Est GFR (Non-African American) 96.8 ml/min; Potassium 3.8 mmol/L (3.5-5.1)
[2023-10-12] MEDS: DOCUSATE SODIUM 100 MG CAP PO SCH ×2 (08:17→19:43)
[2023-10-12] MEDS: PANTOprazole 40 MG in SYRINGE 0 ML IV SCH ×2 (08:18→19:43)
[2023-10-13] MEDS: LACTATED RINGER'S 1,000 ML IV SCH ×4 (00:55→23:20)
[2023-10-13] MEDS: ACETAMINOPHEN 500 MG TAB PO PRN ×2 (04:52→08:48)
[2023-10-13] MEDS: PIPERACILLIN/TAZOBACTAM 4.5 GM in DEXTROSE 5% MINI-B 100 ML IV SCH ×3 (04:52→19:33)
--- NOTE | 2023-10-13 05:14 | Surgery Progress Note ---
Date of Service October 13, 2023 Assessment & Plan (1) History of diverticulitis: Plan: Patient has been admitted on the hospitalist service. Patient is noted to have perforated diverticulitis on CT scan on 10/09/2023 Treatment with conservative measures has resulted in clinical improvement Continue clear liquid for the present time Continue intravenous fluids until diet can be advanced further Continue antibiotics in form of Zosyn Continue analgesics Continue antiemetics Continue to ambulate as able Admission and Anticipated Discharge Date Admission Date: October 09, 2023 Supervising Physician Co-Signing Physician Notes I have seen and examined this patient this am. He denies fevers, chills, N/V but does admit to me some pain when he takes in oral intake. He believes he feels this going through the diseased area of bowel. He remains afebrile and HD. His leukocytosis resolved yesterday, I have not seen this lab result for today. Remain on clear liquids one more day. Likely will be able to advance tomorrow. Dr. Del Rio will evaluate and determine. In the meantime, he continues with headaches off and on for which we added Tylenol to alternate with the Ibuprofen he has been taking and we added Protonix for now. This may improve with more oral intake. Ambulate. Subjective Patient is currently resting comfortably in bed. He notes that his abdominal pain is markedly improved since admission. He says he did have a bowel movement over the past 24 hours and denies any nausea or vomiting. He is tolerating clear liquids. Physical Exam Gastrointestinal (Abdomen): Abdomen is soft and nondistended. There is no rebound tenderness or guarding and patient only has minimal pain with palpation. Results & Data Vital Signs (Past 12 Hours) Vital Signs Temp Pulse Resp BP Pulse Ox O2 Del Method 10/12/23 19:14 36.9 C 85 18 113/71 99 Room Air PG Care Time/CCT Total # of Minutes Spent Total Time Spent with Patient: Total time spent is greater than 50% in coordination of care (as documented) at patient's floor/unit and/or counseling patient: Coding Level of Care Code 70683 SUB INP/OBS CARE 11/21MIN Diagnoses History of diverticulitis Z87.19
[2023-10-13] MEDS: DOCUSATE SODIUM 100 MG CAP PO SCH ×3 (08:46→21:00)
[2023-10-13] MEDS: PANTOprazole 40 MG in SYRINGE 0 ML IV SCH ×2 (08:47→19:37)
[2023-10-14] MEDS: PIPERACILLIN/TAZOBACTAM 4.5 GM in DEXTROSE 5% MINI-B 100 ML IV SCH ×3 (04:02→20:23)
[2023-10-14] MEDS: DOCUSATE SODIUM 100 MG CAP PO SCH ×2 (08:15→20:23)
[2023-10-14] MEDS: PANTOprazole 40 MG in SYRINGE 0 ML IV SCH ×2 (08:15→20:23)
[2023-10-14] MEDS: LACTATED RINGER'S 1,000 ML IV SCH ×2 (08:16→16:58)
[2023-10-14] MEDS: ACETAMINOPHEN 500 MG TAB PO PRN (08:25)
--- NOTE | 2023-10-14 15:46 | Surgery Progress Note ---
Date of Service October 14, 2023 Assessment & Plan (1) History of diverticulitis: Plan: IV abx advance diet home tomorrow likely Admission and Anticipated Discharge Date Admission Date: October 09, 2023 Subjective pain resolving passing BMs Review of Systems Constitutional: no fever Gastrointestinal: no abdominal pain and no change in bowel habits Physical Exam Respiratory: normal respiratory effort, lungs clear to auscultation Cardiovascular: RRR, no murmur, no edema Gastrointestinal (Abdomen): Inspection/Auscultation: abdomen normal to inspection and normal bowel sounds; abdomen not distended Percussion/Palpation: abdomen soft; abdomen nontender
[2023-10-15] MEDS: PIPERACILLIN/TAZOBACTAM 4.5 GM in DEXTROSE 5% MINI-B 100 ML IV SCH (04:17)
[2023-10-15] MEDS: ACETAMINOPHEN 500 MG TAB PO PRN (04:20)
[2023-10-15] MEDS: IBUPROFEN 600 MG TAB PO PRN (08:14)
[2023-10-15] MEDS: DOCUSATE SODIUM 100 MG CAP PO SCH (08:15)
[2023-10-15] MEDS: PANTOprazole 40 MG in SYRINGE 0 ML IV SCH (08:18)
--- NOTE | 2023-10-18 11:24 | Discharge Summary ---
Date of Service October 18, 2023 Admission HPI Per Admitting Provider 72 yr old man with history of constipation and diverticulitis presents with acute onset of generalized abdominal pain, worse in left lower quadrant which started this morning after eating. Notes he has been more tender on the left lower abdomen lately (sore if his lays her arm on it). This has been going on for a few weeks if not longer. This morning, after he had a normal bowel movement and breakfast, developed abdominal pain in mid abdomen. Pain was of mild intensity but would then get intermittent episodes of sharp pain that radiated down left lower abdomen into pelvis. This sharp pain was a 9/10 in i ntensity, would occur out of the blue, last less than a minute and then subside. He was able to continue with activities but noticed the pain more often when he rested or laid down. After dinner (chicken, mashed potatoes, salad), the pain persisted and he came to the ER. Currently, has not received any narcotics. Notes bloating, pain level is 3/10. No nausea, no vomiting. Mild fever (100.1 in ER). No prior colonoscopy - scheduled for January 2024. No prior abdominal operations. For his constipation, he generally takes metamucil daily. Admission Exam Per Admitting Provider Physical Exam Constitutional: WD/WN, vitals as above Eyes: PERRL, conjunctivae normal, anicteric sclerae Neck: normal visual inspection and trachea midline Respiratory: normal respiratory effort, lungs clear to auscultation Cardiovascular: RRR, no murmur, no edema Gastrointestinal (Abdomen): Inspection/Auscultation: abdomen normal to inspection, + abdomen distended (mild) and normal bowel sounds; no abdominal surgical incision Percussion/Palpation: + abdomen tender (mild in left lower quadrant, epigastrium and pelvis), abdomen soft and normal to percussion (no tenderness to percussion or movement); no guarding, abdomen not rigid and no hernia Musculoskeletal: no cyanosis or clubbing, extremities motor strength 5/5 Neurologic: awake; no focal motor deficits Psychiatric: A+Ox3, euthymic affect Principal Diagnosis perforated diverticulitis Discharge Exam Gastrointestinal (Abdomen) Inspection/Auscultation: abdomen normal to inspection and normal bowel sounds; abdomen not distended Percussion/Palpation: abdomen soft; abdomen nontender, no guarding and abdomen not rigid Discharge Data Allergies Allergy/AdvReac Type Severity Reaction Status Date / Time duloxetine Allergy Intermediate Headache Verified 10/18/23 11:16 sumatriptan Allergy Intermediate Headache Verified 10/18/23 11:16 topiramate [From Topamax] Allergy Unknown Change in Verified 10/18/23 11:16 mental status ciprofloxacin [From Cipro] AdvReac Muscle Pain Verified 10/18/23 11:16 Consultations 10/09/23 22:49 Consult General Surgery Stat 10/09/23 23:38 ED Decision to Admit Stat Ordered Studies 10/09/23 19:36 CT abd pelvis IV con only Stat Hospital Course (1) History of diverticulitis: Patient admitted with a perforated diverticulitis. There was a small amount of free air. He had no peritoneal signs on exam. He was made n.p.o., begun on IV antibiotics, and IV fluids. He progressed slowly in his hospitalization without worsening signs of sepsis. He was begun on a diet which is slowly advanced. His pain completely resolved. He was discharged home on p.o. antibiotics. He will be follow-up in the office for the rest of his care. Total Time Total Time Spent Total Time Spent (In Minutes): 35 Discharge Plan Discharge Items Patient Disposition: Home - Self-Care Reason For Visit: ABDOMINAL PAIN Discharge Diagnosis: diverticulitis Activity: Per Instructions section Lifting: None Bathing: No limitations Sexual Activity: When tolerated Driving/Machine Use: No limitations Weightbearing: Full weightbearing Non-emergency contact: Surgeon Call non-emergency contact if: your temperature is above 101.5 Follow-up/Referrals: Hubert Del Rio MD [Physician] - 10/24/23 11:15 am (10 DAYS.) Jeremy Del Rio DO [Primary Care Provider] - Diet: Regular Addtl Attending Provider Instructions: appt my clinic 10 days Pending Studies at Discharge: No Stand-Alone Forms: My [facility] [employer], Smoking Cessation Medications and DC Order Prescriptions: New metronidazole [Flagyl] 375 mg capsule 375 mg PO BID 7 Days Qty: 14 0RF Continued cranberry extract-vitamin C [Azo Cranberry Plus Vit C] 250-60 mg capsule 1 cap PO QDL ibuprofen 200 mg Tablet 400 - 600 mg PO Q6H PRN (Reason: Pain) elderberry fruit 200 mg capsule 200 mg PO QDL multivitamin [Daily Multi-Vitamin] tablet 1 tab PO QDL ferrous sulfate [iron] 325 mg (65 mg iron) Tablet 325 mg PO .Q WED cholecalciferol (vitamin D3) [Vitamin D3] 50 mcg (2,000 unit) Capsule 50 mcg PO DAILY No Action amoxicillin-pot clavulanate 875-125 mg tablet 1 tab PO BID ascorbic acid (vitamin C) 500 mg tablet 500 mg PO DAILY aspirin 81 mg tablet,delayed release (DR/EC) 81 mg PO DAILY Discharge Orders: Discharge Order (Routine); Ordered 10/15/23 Ordered By: Hubert Rosas/Other Patient Handouts: Diverticulitis Dc Admission Data Admit Date/Time: 10/09/23 23:38 Attending Provider: Hubert Del Rio Admit Provider: Chelsy Cheung Primary Care Provider: Jeremy Del Rio Other Providers: Chelsy Cheung Other Interventions: Discharge Summary Assessment (RN) Last Done: 10/15/23 14:12
== END 2023-10-15 14:44 | disposition home or self-care (01) | DRG 392 ==
LOC: ED 19:25 → 3N 23:38
DX: Z79.82 Long term (current) use of aspirin; Z79.899 Other long term (current) drug therapy; Z88.8 Allergy status to other drugs, medicaments and biological substances; K57.80 Diverticulitis of intestine, part unspecified, with perforation and abscess without bleeding

== ENCOUNTER 2024-12-30 02:38 | Inpatient (IN) ==
[2024-12-30 03:49] LABS: Albumin Globulin Ratio 1.4 (0.9-2); Albumin Level 4.6 gm/dl (3.4-5.0); BUN Creatinine Ratio 17.6 (10-20); Bilirubin,Total 0.6 mg/dl (0.2-1.0); Creatinine Clr Calc Pharmacy 78.9 ml/min; Globulin 3.2 gm/dl (2.5-4.0); Total Protein 7.8 gm/dl (6.0-8.3)
--- NOTE | 2024-12-30 04:04 | Emergency Department Note ---
Impression & Plan Abscess of sigmoid colon due to diverticulitis, Abdominal pain, LLQ (left lower quadrant) ED Provider Note HISTORY OF PRESENT ILLNESS: Patient is a 74-year-old male presenting with left lower quadrant abdominal pain. Patient reports pain began at around 1900 on 12/29/2024. He states that the pain seemed to come ago initially, but when he was trying to lay down for bed at 10 PM the pain became significantly worse. He reports he tried to go to sleep but was unable to, prompting him to come to the ER. He states this feels similar to previous episodes of diverticulitis which she has had. He denies any nausea, vomiting or diarrhea. He denies any chest pain. Denies any fevers or chills. He reports the pain is sharp in nature and locates it to the left lower quadrant with radiation into his left back. He denies any dysuria or hematuria. Denies any recent antibiotic use. ROS: as above PHYSICAL EXAM: Constitutional: Patient appears in no acute distress. HENT: Head: Normocephalic and atraumatic. Eyes: EOMI, PERRL Mouth/Throat: Mucous membranes moist. Neck: Trachea midline. Neck supple. Cardiovascular: RRR, No murmurs, rubs or gallops. Intact distal pulses. Pulmonary/Chest: No respiratory distress. Breath sounds clear and equal bilaterally. No wheezes or rales. Abdominal: Abdomen soft, no rebound or guarding. LLQ TTP Musculoskeletal: No edema, tenderness or deformity noted. Skin: Warm and dry. No rash, erythema, pallor or cyanosis Psychiatric: Appropriate mood and affect for situation. Neurological: Alert and keenly responsive. CN II-XII grossly intact, moving all extremities equally and fully. MDM: - Vitals signs showed hypertension - History obtained via patient. History as above. - Chronic conditions affecting care: MATT; cervical osteoarthritis; HLD - Differential diagnoses include, but are not limited to: Aortic aneurysm; diverticulitis; inguinal hernia; testicular torsion; ureteral calculi - Order placed for continuous cardiac monitoring. At this time, monitor showed rate of 72 bpm with normal sinus rhythm, per my interpretation. - External medical records reviewed. Discharge summary dated 10/18/2023 was reviewed. Patient was admitted to the hospital at that time for perforated diverticulitis. - Laboratory workup interpreted by myself showed normal WBC; stable electrolytes; normal AST/ALT; normal lipase - Patient given 1g IV tylenol for pain control in ER. - CT abdomen/pelvis with IV contrast showed sigmoid diverticulitis with adjacent loculated collection measuring 27 x 16 mm suggestive of diverticulitis - IV zosyn ordered - Discussed case with Marshall Faustin PA-C on for general sugery. He recommended admission to medicine and will come see the patient. - Discussion was had with wrapper caser about patient's case and need for admission - Hospitalist consulted for admission - Patient admitted to [facility] for further evaluation and management. ASSESSMENT AND PLAN: Diagnosis: sigmoid diverticulitis with abscess; LLQ abdominal pain Plan: admit Past Med/Surg History Problem List (Updated 12/30/24 @ 06:09 by Zoe Marin MD) Abdominal pain, LLQ (left lower quadrant) (Acute) Abscess of sigmoid colon due to diverticulitis (Acute) Left carpal tunnel syndrome Esophagitis Ileitis Iron deficiency anemia Lower abdominal pain (Acute) Intra-abdominal free air of unknown etiology (Acute) Decreased ROM of neck Encounter for pre-operative examination Hyperlipidemia Constipation Cervicogenic headache Bladder wall thickening (Chronic 07/17/19) "Mild non-specific bladder wall thickening". Saw Urology with plans for cysto, but no report found in chart ? f/u. Family history of colon cancer (Chronic) Right knee pain (Chronic) Migraine (Chronic) Chronic migraine without aura (Chronic) Cervical spinal stenosis Cervical osteoarthritis (Chronic) ROM is "fine" Cervicalgia (Chronic) Migraine-cluster headache syndrome (Chronic) Obstructive sleep apnea (adult) (pediatric) (Chronic) NO CPAP Restless legs syndrome (Chronic) Vertigo (Chronic) just OTC meds prn Medical History Hx of renal calculi History of diverticulitis Hyperlipidemia Slow to wake up after anesthesia Surgical History H/O colonoscopy S/P cystoscopy with ureteral stent placement Hx of right knee surgery History of esophagogastroduodenoscopy (EGD) History of tooth extraction S/P arthroscopic knee surgery Family History Father Cancer Lung cancer Myocardial infarction Mother Colorectal cancer Stroke Denies family history of Ovarian cancer Prostate cancer Diabetes Breast cancer Social History Smoking Status: Former smoker Tobacco Type: Cigarettes Second Hand Exposure: No; Do You Dip or Chew Tobacco: No; Hx Alcohol Use: Yes (none for at least 20 years or more) Alcohol type: beer Hx Substance Use: No Preferred Language: Mexican Communication Ability: Effective Visual Impairment: Limited Hearing Ability: Normal Art Gilder Required: No Beliefs That Will Affect Care: None marital status: Current Living Situation: Spouse current occupational status: retired How many Children do You have: 1 Feels Safe at Home: Yes Childhood Exposure to Second-Hand Smoke: Yes Diet: low carbohydrate and low salt caffeine: Yes during the past year weight has: remained stable Dental Care, Regularly: Yes Physical Activity Frequency: 1-2 Times per Week Seatbelt Use: always Sunscreen Use: No Assistive Devices: None Allergies Allergies Allergy/AdvReac Type Severity Reaction Status Date / Time duloxetine Allergy Intermediate Headache Verified 08/21/24 08:35 sumatriptan Allergy Intermediate Headache Verified 08/21/24 08:35 topiramate [From Topamax] Allergy Unknown Change in Verified 08/21/24 08:35 mental status ciprofloxacin [From Cipro] AdvReac Muscle Pain Verified 08/21/24 08:35 Home Meds Home Medications Medication Instructions Recorded Confirmed cranberry extract-vitamin C 250 1 cap PO QPM 03/07/21 08/21/24 mg-60 mg capsule (Azo Cranberry Plus Vit C) elderberry fruit 200 mg capsule 200 mg PO QPM 03/07/21 08/21/24 multivitamin (Daily Multi-Vitamin 1 tab PO QPM 04/28/21 08/21/24 tablet) cholecalciferol (vitamin D3) 50 50 mcg PO Q7D 10/09/23 08/21/24 mcg (2,000 unit) capsule (Vitamin D3) aspirin 81 mg tablet,delayed 81 mg PO QPM 10/18/23 08/21/24 release Motion Sickness 1 tab PO UD PRN Dizziness 01/30/24 08/21/24 acetaminophen 650 mg 650 mg PO Q8H PRN Pain 01/30/24 08/21/24 tablet,extended release (Tylenol 8 Hour) Previous Rx's Medication Instructions Recorded cyclobenzaprine 10 mg tablet 10 mg PO BID PRN muscle spasm #60 05/07/24 tabs diphth,pertus(acell),tetanus 2.5 0.5 ml IM ONCE #0.5 mL 05/07/24 Lf unit-8 mcg-5 Lf/0.5mL IM syringe (Boostrix Tdap) pneumoc 20-jesus conj-dip cr(PF) 0.5 0.5 ml IM ONCE #0.5 mL 05/07/24 mL IM syringe (Prevnar 20 (PF)) varicella-zoster glycoE [id number] 50 mcg IM ONCE #1 ea 05/07/24 adj(PF) 50 mcg/0.5 mL IM susp, kit (Shingrix (PF)) Results & Data (ED) Vital Signs Vital Signs - 24 hr 12/30/24 02:40 12/30/24 03:24 12/30/24 03:24 Temperature 36.6 C Temperature Source Temporal Artery Scan Pulse Rate 89 70 Pulse Rate [Apical] 84 Pulse Rate from SpO2 Sensor Pulse Rhythm Regular Pulse Rhythm [Apical] Regular Respiratory Rate 16 16 16 Respiratory Effort / Characteristics Non-Labored Spontaneous Respiratory Depth Normal Respiratory Pattern Regular Blood Pressure 138/99 Blood Pressure [Right Arm] 147/97 H Blood Pressure Mean 112 Blood Pressure Mean [Right Arm] 113 Pulse Oximetry 98 96 97 Oxygen Delivery Method Room Air Room Air Room Air Sepsis Recent Fever Within 48 Hours No Sepsis New/Unexplained Change in Mental Status No Sepsis Action Taken by Nursing No Action Required 12/30/24 03:25 12/30/24 03:27 12/30/24 03:30 Temperature Temperature Source Pulse Rate 72 83 72 Pulse Rate [Apical] Pulse Rate from SpO2 Sensor Pulse Rhythm Pulse Rhythm [Apical] Respiratory Rate 16 12 Respiratory Effort / Characteristics Respiratory Depth Respiratory Pattern Blood Pressure 147/97 H 144/89 H Blood Pressure [Right Arm] Blood Pressure Mean 126 112 Blood Pressure Mean [Right Arm] Pulse Oximetry 97 96 Oxygen Delivery Method Room Air Room Air Sepsis Recent Fever Within 48 Hours Sepsis New/Unexplained Change in Mental Status Sepsis Action Taken by Nursing 12/30/24 04:30 12/30/24 04:45 12/30/24 05:00 Temperature Temperature Source Pulse Rate 72 70 66 Pulse Rate [Apical] Pulse Rate from SpO2 Sensor 70 64 Pulse Rhythm Pulse Rhythm [Apical] Respiratory Rate 17 16 15 Respiratory Effort / Characteristics Respiratory Depth Respiratory Pattern Blood Pressure 136/88 126/80 Blood Pressure [Right Arm] Blood Pressure Mean 96 95 Blood Pressure Mean [Right Arm] Pulse Oximetry 96 95 95 Oxygen Delivery Method Room Air Room Air Room Air Sepsis Recent Fever Within 48 Hours Sepsis New/Unexplained Change in Mental Status Sepsis Action Taken by Nursing 12/30/24 05:00 12/30/24 05:30 Temperature Temperature Source Pulse Rate 64 Pulse Rate [Apical] Pulse Rate from SpO2 Sensor 63 Pulse Rhythm Pulse Rhythm [Apical] Respiratory Rate 16 16 Respiratory Effort / Characteristics Non-Labored Spontaneous Respiratory Depth Normal Respiratory Pattern Regular Blood Pressure 115/78 Blood Pressure [Right Arm] Blood Pressure Mean 90 Blood Pressure Mean [Right Arm] Pulse Oximetry 95 Oxygen Delivery Method Room Air Sepsis Recent Fever Within 48 Hours Sepsis New/Unexplained Change in Mental Status Sepsis Action Taken by Nursing Laboratory Data 12/30/24 03:18 12/30/24 03:18 Lab Results 12/30/24 Range/Units 03:18 WBC 9.12 (4.8-10.8) K/ul RBC 4.82 (4.70-6.10) M/uL Hgb 16.2 (14.0-18.0) g/dl Hct 45.1 (42.0-52.0) % MCV 93.6 (80.0-100.0) fL MCH 33.6 (25.0-34.0) pg MCHC 35.9 (32.0-36.0) g/dL RDW Std Deviation 40.8 (36.4-46.3) fL RDW Coeff of All 11.9 (11.5-14.5) % Plt Count 251 (130-400) K/uL MPV 9.7 (9.4-12.4) fL Immature Gran % (Auto) 0.3 % Neut % (Auto) 74.7 % Lymph % (Auto) 15.8 % Gray % (Auto) 8.0 % Eos % (Auto) 1.0 % Baso % (Auto) 0.2 % Neut # (Auto) 6.81 H (1.40-6.50) K/uL Lymph # (Auto) 1.44 (1.20-3.40) K/uL Gray # (Auto) 0.73 H (0.11-0.59) K/uL Eos # (Auto) 0.09 (0.00-0.50) K/uL Baso # (Auto) 0.02 (0.00-0.20) K/uL Immature Gran # (Auto) 0.03 (0.01-0.20) K/uL Sodium 137 (136-145) mmol/L Potassium 4.0 (3.5-5.1) mmol/L Chloride 103 (98-107) mmol/L Carbon Dioxide 30 (21-32) mmol/L Anion Gap 4 (3-11) BUN 15 (6-23) mg/dl Creatinine 0.85 (0.6-1.4) mg/dl Est Cr Clr Drug Dosing 78.9 ml/min eGFR 92.32 BUN/Creatinine Ratio 17.6 (10-20) Glucose 97 (70-99(Fasting)) mg/dl Calcium 10.0 (8.6-10.3) mg/dl Total Bilirubin 0.6 (0.2-1.0) mg/dl AST 20 (13-39) U/L ALT 18 (7-52) U/L Alkaline Phosphatase 64 (34-104) U/L Total Protein 7.8 (6.0-8.3) gm/dl Albumin 4.6 (3.4-5.0) gm/dl Globulin 3.2 (2.5-4.0) gm/dl Albumin/Globulin Ratio 1.4 (0.9-2) Lipase 15 (11-82) U/L Administered Medications Discontinued Medications Acetaminophen (Ofirmev) 1,000 mg in 100 mls @ 400 mls/hr IV NOW STA Stop: 12/30/24 04:06 Last Infusion: 12/30/24 05:17 Dose: Infused Documented By: Admin: 12/30/24 04:30 Dose: 400 mls/hr Documented By: MICHAEL Ioversol (Optiray 320 100ml) 100 ml IV ONCE ONE Stop: 12/30/24 04:21 Last Admin: 12/30/24 04:20 Dose: 93 ml Documented By: SCOOTER Imaging Data Radiologist's Impression: Abdomen/Pelvis CT 12/30/24 02:45 EXAM: CT abd pelvis IV con only CLINICAL HISTORY: left side abd pain TECHNIQUE: Contiguous axial images were obtained from the level of the diaphragm to the pubic symphysis with intravenous contrast. Coronal and sagittal reconstructions were likewise performed and indicated to increase the sensitivity for detecting clinically relevant pathology. If IV contrast material had not been administered, the likelihood of detecting abnormalities relevant to the patient's condition would have been substantially decreased. CT scan was performed according to ALARA (as low as reasonable achievable). COMPARISON: 09 October 2023 FINDINGS: The visualized lung bases are clear. The liver is normal in size and attenuation. No focal liver lesions are seen. There is no intra or extrahepatic biliary ductal dilatation. Hepatic vasculature is patent. The gallbladder is present. The spleen, pancreas, and adrenal glands are unremarkable. The kidneys are normal in size and attenuation. There is no hydronephrosis or perinephric fat stranding. No renal calculi or renal masses are identified. Stable right renal cortical cyst. The ureters are normal in caliber and no ureteral calculi are seen. The bladder is normal in contour. Pelvic viscera are unremarkable. No focal or diffuse bowel wall thickening or evidence of bowel obstruction is identified. The appendix is visualized in the right lower quadrant and appears within normal limits. Abdominal and pelvic vasculature is patent. No adenopathy or fluid collections are seen. No aggressive appearing osseous lesions are identified. Multiple small sigmoid colonic diverticulosis with adjacent moderate fat stranding and loculated fluid collection with internal air focus measuring about 27 x 16 mm- suggestive of diverticulitis. IMPRESSION: 1. Sigmoid diverticulitis with adjacent loculated collection as described.- increased changes of diverticulitis with no interval development of peridiverticular collection as compared with prior study. 2. No other acute interval changes is seen. Electronically signed by Ken Osuna 12-30-2024 06:00 AM Discharge Plan Visit Data Chief Complaint: Abdominal Pain Stated Complaint: STOMACH PAIN ED Provider: Zoe Marin Discharge Problem: Abscess of sigmoid colon due to diverticulitis, Abdominal pain, LLQ (left lower quadrant) Forms Stand Alone Forms: [employer] Prescriptions Prescriptions: No Action cranberry extract-vitamin C [Azo Cranberry Plus Vit C] 250-60 mg capsule 1 cap PO QPM cyclobenzaprine 10 mg tablet 10 mg PO BID PRN (Reason: muscle spasm) Qty: 60 2RF Boostrix Tdap 2.5-8-5 Lf-mcg-Lf/0.5mL syringe 0.5 ml IM ONCE Qty: 0.5 0RF Prevnar 20 (PF) 0.5 mL syringe 0.5 ml IM ONCE Qty: 0.5 0RF Shingrix (PF) 50 mcg/0.5 mL suspension for reconstitution 50 mcg IM ONCE Qty: 1 0RF elderberry fruit 200 mg capsule 200 mg PO QPM multivitamin [Daily Multi-Vitamin] tablet 1 tab PO QPM aspirin 81 mg tablet,delayed release (DR/EC) 81 mg PO QPM Patient Comments: w/lunch or after acetaminophen [Tylenol 8 Hour] 650 mg Tablet Extended Release 650 mg PO Q8H PRN (Reason: Pain) Motion Sickness 1 tab PO UD PRN (Reason: Dizziness) cholecalciferol (vitamin D3) [Vitamin D3] 50 mcg (2,000 unit) Capsule 50 mcg PO Q7D Referrals Referrals: Jeremy Del Rio DO [Primary Care Provider] -
[2024-12-30] MEDS: OPTIRAY 320 100ml IV ONE (04:20)
[2024-12-30] MEDS: ACETAMINOPHEN 1,000 MG/100 ML VIAL IV STA (04:30)
[2024-12-30 05:11] LABS: Basophils # (auto) 0.02 K/uL (0.00-0.20); Basophils % (auto) 0.2 %; Eosinophils # (auto) 0.09 K/uL (0.00-0.50); Hematocrit (blood only) 45.1 % (42.0-52.0); Hemoglobin 16.2 g/dl (14.0-18.0); Immature Granulocytes # (auto) 0.03 K/uL (0.01-0.20); Immature Granulocytes % (auto) 0.3 %; Lymphocytes # (auto) 1.44 K/uL (1.20-3.40); Lymphocytes % (auto) 15.8 %; Mean Corpuscular Hemoglobin 33.6 pg (25.0-34.0); Mean Corpuscular Hgb Conc 35.9 g/dL (32.0-36.0); Mean Corpuscular Volume 93.6 fL (80.0-100.0); Mean Platelet Volume 9.7 fL (9.4-12.4); Monocytes # (auto) 0.73 K/uL (0.11-0.59); Neutrophils # (auto) 6.81 K/uL (1.40-6.50); Neutrophils % (auto) 74.7 %; Platelet Count 251 K/uL (130-400); RDW Coefficient of Variation 11.9 % (11.5-14.5); RDW Standard Deviation 40.8 fL (36.4-46.3); Red Blood Count 4.82 M/uL (4.70-6.10); White Blood Count 9.12 K/ul (4.8-10.8)
--- NOTE | 2024-12-30 06:01 | CT Scan Report ---
EXAM: CT abd pelvis IV con only CLINICAL HISTORY: left side abd pain TECHNIQUE: Contiguous axial images were obtained from the level of the diaphragm to the pubic symphysis with intravenous contrast. Coronal and sagittal reconstructions were likewise performed and indicated to increase the sensitivity for detecting clinically relevant pathology. If IV contrast material had not been administered, the likelihood of detecting abnormalities relevant to the patient's condition would have been substantially decreased. CT scan was performed according to ALARA (as low as reasonable achievable). COMPARISON: 09 October 2023 FINDINGS: The visualized lung bases are clear. The liver is normal in size and attenuation. No focal liver lesions are seen. There is no intra or extrahepatic biliary ductal dilatation. Hepatic vasculature is patent. The gallbladder is present. The spleen, pancreas, and adrenal glands are unremarkable. The kidneys are normal in size and attenuation. There is no hydronephrosis or perinephric fat stranding. No renal calculi or renal masses are identified. Stable right renal cortical cyst. The ureters are normal in caliber and no ureteral calculi are seen. The bladder is normal in contour. Pelvic viscera are unremarkable. No focal or diffuse bowel wall thickening or evidence of bowel obstruction is identified. The appendix is visualized in the right lower quadrant and appears within normal limits. Abdominal and pelvic vasculature is patent. No adenopathy or fluid collections are seen. No aggressive appearing osseous lesions are identified. Multiple small sigmoid colonic diverticulosis with adjacent moderate fat stranding and loculated fluid collection with internal air focus measuring about 27 x 16 mm- suggestive of diverticulitis. IMPRESSION: 1. Sigmoid diverticulitis with adjacent loculated collection as described.- increased changes of diverticulitis with no interval development of peridiverticular collection as compared with prior study. 2. No other acute interval changes is seen. Electronically signed by Ken Osuna 12-30-2024 06:00 AM
[2024-12-30] MEDS: PIPERACILLIN/TAZOBACTAM 4.5 GM/100 ML BAG IV ONE (06:11)
--- NOTE | 2024-12-30 06:14 | History & Physical Report ---
Date of Service December 30, 2024 Assessment & Plan (1) Abscess of sigmoid colon due to diverticulitis: Plan: 74yo male with history of diverticulitis, prior perforation in 09/2023 presenting with LLQ pain. Found to have multiple small sigmoid colonic diverticulosis with adjacent moderate fat stranding and loculated fluid collection with internal air focus measuring about 27 x 16 mm- suggestive of diverticulitis. Patient is afebrile, HD stable, normal WBC count. Abdomen is mildly tender but not acute, no distention -Observation to medical -Keep NPO -LR at 125mL/hr x 2L ordered -Continue Zosyn 4.5gm IV q 8 -Tylenol PRN pain -Zofran PRN nausea -General Surgery consultation appreciated History of Present Illness Chief Complaint: abdominal pain Primary Care Provider: DO Robinson Alford is a 74yo male presenting with history of diverticulitis with perforation in September 2023 presenting with LLQ abdominal pain. Patient had been in his usual state of health. Developed fairly constant LLLQ abdominal pain on the evening of 12/29/24 around 18:00. Patient denies fever, chills, nausea, vomiting, diarrhea, abdominal distention or bleeding. No additional complaints at this time. In the ER he is afebrile, HD stable ER Course: Zosyn 4.5gm Allergies Allergy/AdvReac Type Severity Reaction Status Date / Time duloxetine Allergy Intermediate Headache Verified 08/21/24 08:35 sumatriptan Allergy Intermediate Headache Verified 08/21/24 08:35 topiramate [From Topamax] Allergy Unknown Change in Verified 08/21/24 08:35 mental status ciprofloxacin [From Cipro] AdvReac Muscle Pain Verified 08/21/24 08:35 Home Medications Medication Instructions Recorded Confirmed Type cranberry extract-vitamin C 250 1 cap PO QPM 03/07/21 08/21/24 History mg-60 mg capsule (Azo Cranberry Plus Vit C) elderberry fruit 200 mg capsule 200 mg PO QPM 03/07/21 08/21/24 History multivitamin (Daily Multi-Vitamin 1 tab PO QPM 04/28/21 08/21/24 History tablet) cholecalciferol (vitamin D3) 50 50 mcg PO Q7D 10/09/23 08/21/24 History mcg (2,000 unit) capsule (Vitamin D3) aspirin 81 mg tablet,delayed 81 mg PO QPM 10/18/23 08/21/24 History release Motion Sickness 1 tab PO UD PRN Dizziness 01/30/24 08/21/24 History acetaminophen 650 mg 650 mg PO Q8H PRN Pain 01/30/24 08/21/24 History tablet,extended release (Tylenol 8 Hour) cyclobenzaprine 10 mg tablet 10 mg PO BID PRN muscle spasm #60 05/07/24 08/21/24 Rx tabs diphth,pertus(acell),tetanus 2.5 0.5 ml IM ONCE #0.5 mL 05/07/24 08/21/24 Rx Lf unit-8 mcg-5 Lf/0.5mL IM syringe (Boostrix Tdap) pneumoc 20-jesus conj-dip cr(PF) 0.5 0.5 ml IM ONCE #0.5 mL 05/07/24 08/21/24 Rx mL IM syringe (Prevnar 20 (PF)) varicella-zoster glycoE [id number] 50 mcg IM ONCE #1 ea 05/07/24 08/21/24 Rx adj(PF) 50 mcg/0.5 mL IM susp, kit (Shingrix (PF)) Past Med/Surg History Problem List Diverticulitis Abdominal pain, LLQ (left lower quadrant) (Acute) Abscess of sigmoid colon due to diverticulitis (Acute) Left carpal tunnel syndrome Esophagitis Ileitis Iron deficiency anemia Lower abdominal pain (Acute) Intra-abdominal free air of unknown etiology (Acute) Decreased ROM of neck Encounter for pre-operative examination Hyperlipidemia Constipation Cervicogenic headache Bladder wall thickening (Chronic 07/17/19) "Mild non-specific bladder wall thickening". Saw Urology with plans for cysto, but no report found in chart ? f/u. Family history of colon cancer (Chronic) Right knee pain (Chronic) Migraine (Chronic) Chronic migraine without aura (Chronic) Cervical spinal stenosis Cervical osteoarthritis (Chronic) ROM is "fine" Cervicalgia (Chronic) Migraine-cluster headache syndrome (Chronic) Obstructive sleep apnea (adult) (pediatric) (Chronic) NO CPAP Restless legs syndrome (Chronic) Vertigo (Chronic) just OTC meds prn Medical History Hx of renal calculi passed on own History of diverticulitis Hyperlipidemia Slow to wake up after anesthesia Surgical History H/O colonoscopy 02/12/24, repeat 1 year 2024 S/P cystoscopy with ureteral stent placement s/p stent removal also Hx of right knee surgery osteotomy w/hardware (plate) placement History of esophagogastroduodenoscopy (EGD) History of tooth extraction S/P arthroscopic knee surgery right ACL reconstruction Family History Father Cancer Lung cancer Myocardial infarction Mother Colorectal cancer Stroke Denies family history of Ovarian cancer Prostate cancer Diabetes Breast cancer Social History Smoking Status: Former smoker Tobacco Type: Cigarettes Second Hand Exposure: No; Do You Dip or Chew Tobacco: No; Hx Alcohol Use: Yes (none for at least 20 years or more) Alcohol type: beer Hx Substance Use: No Preferred Language: Swedish Communication Ability: Effective Visual Impairment: Limited Hearing Ability: Normal Pressing Machine Tender Required: No Beliefs That Will Affect Care: None marital status: Current Living Situation: Spouse current occupational status: retired How many Children do You have: 1 Feels Safe at Home: Yes Childhood Exposure to Second-Hand Smoke: Yes Diet: low carbohydrate and low salt caffeine: Yes during the past year weight has: remained stable Dental Care, Regularly: Yes Physical Activity Frequency: 1-2 Times per Week Seatbelt Use: always Sunscreen Use: No Assistive Devices: None Review of Systems Review of Systems: All systems reviewed & are unremarkable except as noted in HPI & below Physical Exam Physical Exam: General: patient resting comfortably, NAD, non-toxic in appearance, AA&O x 4 Skin: warm, dry, intact, no rashes or lesions HEENT: NC/AT, PERRL, EOMI, anicteric sclera, conjunctiva without injection, external ear normal to inspection and nontender, nares patent, moist mucus membranes, dentition intact, no oropharyngeal lesions, neck supple, trachea midline, no LAD, no thyromegaly, no JVD Heart: +S1/S2, regular, no m/r/g Lungs: equal air entry bilaterally, no rales/rhonchi/wheezes Abd: +BS, soft, ND, tenderness in LLQ with no rebound/guarding, no masses/organomegaly/ascites Ext: warm, 2+ pulses in UE/LE bilaterally, no clubbing/cyanosis or edema Neuro: nonfocal, patient AA&O x 4, speech intact, no facial droop, moving all extremities on command with equal strength 5/5 Results & Data Results & Data Vital Signs (Past 12 Hours) Vital Signs Temp Pulse Pulse Resp BP BP Pulse Ox 12/30/24 05:30 64 16 115/78 95 12/30/24 05:00 16 12/30/24 05:00 66 15 126/80 95 12/30/24 04:45 70 16 95 12/30/24 04:30 72 17 136/88 96 12/30/24 03:30 72 12 144/89 H 96 12/30/24 03:27 83 12/30/24 03:25 72 16 147/97 H 97 12/30/24 03:24 70 16 97 12/30/24 03:24 84 16 147/97 H 96 12/30/24 02:40 36.6 C 89 16 138/99 98 O2 Del Method 12/30/24 05:30 Room Air 12/30/24 05:00 12/30/24 05:00 Room Air 12/30/24 04:45 Room Air 12/30/24 04:30 Room Air 12/30/24 03:30 Room Air 12/30/24 03:27 12/30/24 03:25 Room Air 12/30/24 03:24 Room Air 12/30/24 03:24 Room Air 12/30/24 02:40 Room Air Laboratory Results Laboratory Results WBC 9.12 K/ul (4.8-10.8) 12/30/24 03:18 RBC 4.82 M/uL (4.70-6.10) 12/30/24 03:18 Hgb 16.2 g/dl (14.0-18.0) 12/30/24 03:18 Hct 45.1 % (42.0-52.0) 12/30/24 03:18 MCV 93.6 fL (80.0-100.0) 12/30/24 03:18 MCH 33.6 pg (25.0-34.0) 12/30/24 03:18 MCHC 35.9 g/dL (32.0-36.0) 12/30/24 03:18 RDW Std Deviation 40.8 fL (36.4-46.3) 12/30/24 03:18 RDW Coeff of All 11.9 % (11.5-14.5) 12/30/24 03:18 Plt Count 251 K/uL (130-400) 12/30/24 03:18 MPV 9.7 fL (9.4-12.4) 12/30/24 03:18 Immature Gran % (Auto) 0.3 % 12/30/24 03:18 Neut % (Auto) 74.7 % 12/30/24 03:18 Lymph % (Auto) 15.8 % 12/30/24 03:18 Johnson % (Auto) 8.0 % 12/30/24 03:18 Eos % (Auto) 1.0 % 12/30/24 03:18 Baso % (Auto) 0.2 % 12/30/24 03:18 Neut # (Auto) 6.81 K/uL (1.40-6.50) H 12/30/24 03:18 Lymph # (Auto) 1.44 K/uL (1.20-3.40) 12/30/24 03:18 Johnson # (Auto) 0.73 K/uL (0.11-0.59) H 12/30/24 03:18 Eos # (Auto) 0.09 K/uL (0.00-0.50) 12/30/24 03:18 Baso # (Auto) 0.02 K/uL (0.00-0.20) 12/30/24 03:18 Immature Gran # (Auto) 0.03 K/uL (0.01-0.20) 12/30/24 03:18 Sodium 137 mmol/L (136-145) 12/30/24 03:18 Potassium 4.0 mmol/L (3.5-5.1) 12/30/24 03:18 Chloride 103 mmol/L (98-107) 12/30/24 03:18 Carbon Dioxide 30 mmol/L (21-32) 12/30/24 03:18 Anion Gap 4 (3-11) 12/30/24 03:18 BUN 15 mg/dl (6-23) 12/30/24 03:18 Creatinine 0.85 mg/dl (0.6-1.4) 12/30/24 03:18 Est Cr Clr Drug Dosing 78.9 ml/min 12/30/24 03:18 eGFR 92.32 12/30/24 03:18 BUN/Creatinine Ratio 17.6 (10-20) 12/30/24 03:18 Glucose 97 mg/dl (70-99(Fasting)) 12/30/24 03:18 Calcium 10.0 mg/dl (8.6-10.3) 12/30/24 03:18 Total Bilirubin 0.6 mg/dl (0.2-1.0) 12/30/24 03:18 AST 20 U/L (13-39) 12/30/24 03:18 ALT 18 U/L (7-52) 12/30/24 03:18 Alkaline Phosphatase 64 U/L (34-104) 12/30/24 03:18 Total Protein 7.8 gm/dl (6.0-8.3) 12/30/24 03:18 Albumin 4.6 gm/dl (3.4-5.0) 12/30/24 03:18 Globulin 3.2 gm/dl (2.5-4.0) 12/30/24 03:18 Albumin/Globulin Ratio 1.4 (0.9-2) 12/30/24 03:18 Lipase 15 U/L (11-82) 12/30/24 03:18 Impressions Abdomen/Pelvis CT 12/30/24 02:45 EXAM: CT abd pelvis IV con only CLINICAL HISTORY: left side abd pain TECHNIQUE: Contiguous axial images were obtained from the level of the diaphragm to the pubic symphysis with intravenous contrast. Coronal and sagittal reconstructions were likewise performed and indicated to increase the sensitivity for detecting clinically relevant pathology. If IV contrast material had not been administered, the likelihood of detecting abnormalities relevant to the patient's condition would have been substantially decreased. CT scan was performed according to ALARA (as low as reasonable achievable). COMPARISON: 09 October 2023 FINDINGS: The visualized lung bases are clear. The liver is normal in size and attenuation. No focal liver lesions are seen. There is no intra or extrahepatic biliary ductal dilatation. Hepatic vasculature is patent. The gallbladder is present. The spleen, pancreas, and adrenal glands are unremarkable. The kidneys are normal in size and attenuation. There is no hydronephrosis or perinephric fat stranding. No renal calculi or renal masses are identified. Stable right renal cortical cyst. The ureters are normal in caliber and no ureteral calculi are seen. The bladder is normal in contour. Pelvic viscera are unremarkable. No focal or diffuse bowel wall thickening or evidence of bowel obstruction is identified. The appendix is visualized in the right lower quadrant and appears within normal limits. Abdominal and pelvic vasculature is patent. No adenopathy or fluid collections are seen. No aggressive appearing osseous lesions are identified. Multiple small sigmoid colonic diverticulosis with adjacent moderate fat stranding and loculated fluid collection with internal air focus measuring about 27 x 16 mm- suggestive of diverticulitis. IMPRESSION: 1. Sigmoid diverticulitis with adjacent loculated collection as described.- increased changes of diverticulitis with no interval development of peridiverticular collection as compared with prior study. 2. No other acute interval changes is seen. Electronically signed by Ken Osuna 12-30-2024 06:00 AM PG Care Time/CCT Total # of Minutes Spent Total Time Spent with Patient: Total time spent is greater than 50% in coordination of care (as documented) at patient's floor/unit and/or counseling patient: Coding Level of Care Code 88142 INT INP/OBS CARE 2/55MIN Diagnoses Abscess of sigmoid colon due to diverticulitis K57.20
--- NOTE | 2024-12-30 06:19 | Surgery Consultation ---
Date of Consultation December 30, 2024 Assessment & Plan (1) Diverticulitis: I discussed with the treating emergency room physician the patient is being admitted on the hospitalist service. From surgery perspective we recommend the following: Antibiotics are to be initiated. The treating emergency room physician has initiated Zosyn and this should continue Would recommend implementing n.p.o. status IV fluid should be provided for hydration while patient is n.p.o. Serial labs should be followed Serial abdominal exams to be followed Does appears of the patient has diverticulitis based on his CT scan and he does have a small fluid collection, but I suspect that this is too small for percutaneous drainage and we will monitor this clinically If the patient fails to improve with the above-noted regimen, consideration can be given to repeat imaging of his abdomen to see if there is any increase in size of the fluid collection that would be amendable to percutaneous drainage I did discuss with the patient the rationale for conservative treatment as noted above as any emergent surgical procedure would necessitate a colostomy which she would like to avoid. At the present time the patient is nontoxic-appearing. He is normotensive without tachycardia or fever. He also does not exhibit leukocytosis and does not have an acute abdomen, therefore I feel conservative treatment is warranted at this time Additional recommendations with forthcoming based on his clinical course as it unfolds (2) Diverticulitis: Supervising Physician Co-Signing Physician Notes Patient seen and examined, labs and imaging reviewed, agree with above. 74-year-old male admitted with diverticulitis with small abscess. Feeling better than he did on arrival. Had a colonoscopy in January following an episode of sigmoid perforation of unknown etiology. Prior episode of diverticulitis few years ago was treated with outpatient oral antibiotics. On exam he is afebrile with stable vitals, abdomen is soft, mildly tender in the left lower quadrant. WBC normal this morning. CT personally viewed and interpreted agree with the assessment of diverticulitis with a large tic versus small fluid collection. This does appear to be in the same location as the perforation on his scan from 2022. No acute surgical indication at this time. Continue IV antibiotics, recommend n.p.o. with bowel rest for 24 hours. Likely clear liquids tomorrow. Surgery will follow. History of Present Illness Reason for Consultation: Diverticulitis History of Present Illness This is a 74-year-old male who presented to the emergency department secondary to abdominal pain. He said that the pain began approximate 6:00 PM on 12/31/2024. He does have a history of diverticulitis and felt his pain was similar to what he experienced at that time thus he presented to the emergency department. He specifically denies any fevers, shakes, or chills. He denies any nausea or vomiting. He denies any radiation or modifying factors to his pain. He does note that his bowels have been moving normally up to including last night and he notes he is urinating without difficulty. He has never had abdominal surgery in the past. Patient does report that he has had a colonoscopy in the past. Patient's records were reviewed the patient did have a colonoscopy in January 2024[facility] patient was noted to have diverticulosis of the sigmoid colon. He was also noted to have some inflammation of the ileum secondary to ileitis. He did have a 6 mm polyp removed in the ascending colon colon. The pathology for this polyp showed a tubular adenoma. It is noteworthy to mention that the patient was admitted to the hospital in September 2023 at which time he had a CT scan of the abdomen pelvis which showed the patient had free intraperitoneal air concerning for some type of gastro in testinal perforation. The site of perforation was suspected to be the sigmoid colon. At that time the patient was admitted to the surgical service and consideration was given for surgical intervention versus conservative treatment and the patient opted for conservative treatment and he responded well to this and did not require surgical intervention. Since arrival to the hospital the patient has had labs and imaging which I independently reviewed. A CBC revealed white blood cell count, hemoglobin, hematocrit, and platelet count were normal. Chemistry profile showed sodium and potassium as well as the BUN and creatinine were normal. There is no elevation of the patient's LFTs or lipase. Patient did undergo a CT scan of the abdomen pelvis. This showed the patient had findings concerning for sigmoid diverticulitisthere are multiple small sigmoid diverticuli with adjacent fat stranding and a loculated fluid collection with internal air focus measuring approximately 27 x 16 mm. At the time of my interview the patient was resting comfortably in bed and he was in no distress. Allergies Allergy/AdvReac Type Severity Reaction Status Date / Time duloxetine Allergy Intermediate Headache Verified 08/21/24 08:35 sumatriptan Allergy Intermediate Headache Verified 08/21/24 08:35 topiramate [From Topamax] Allergy Unknown Change in Verified 08/21/24 08:35 mental status ciprofloxacin [From Cipro] AdvReac Muscle Pain Verified 08/21/24 08:35 Home Medications Medication Instructions Recorded Confirmed Type cranberry extract-vitamin C 250 1 cap PO QPM 03/07/21 08/21/24 History mg-60 mg capsule (Azo Cranberry Plus Vit C) elderberry fruit 200 mg capsule 200 mg PO QPM 03/07/21 08/21/24 History multivitamin (Daily Multi-Vitamin 1 tab PO QPM 04/28/21 08/21/24 History tablet) cholecalciferol (vitamin D3) 50 50 mcg PO Q7D 10/09/23 08/21/24 History mcg (2,000 unit) capsule (Vitamin D3) aspirin 81 mg tablet,delayed 81 mg PO QPM 10/18/23 08/21/24 History release Motion Sickness 1 tab PO UD PRN Dizziness 01/30/24 08/21/24 History acetaminophen 650 mg 650 mg PO Q8H PRN Pain 01/30/24 08/21/24 History tablet,extended release (Tylenol 8 Hour) cyclobenzaprine 10 mg tablet 10 mg PO BID PRN muscle spasm #60 05/07/24 08/21/24 Rx tabs diphth,pertus(acell),tetanus 2.5 0.5 ml IM ONCE #0.5 mL 05/07/24 08/21/24 Rx Lf unit-8 mcg-5 Lf/0.5mL IM syringe (Boostrix Tdap) pneumoc 20-jesus conj-dip cr(PF) 0.5 0.5 ml IM ONCE #0.5 mL 05/07/24 08/21/24 Rx mL IM syringe (Prevnar 20 (PF)) varicella-zoster glycoE vacc-[id number] 50 mcg IM ONCE #1 ea 05/07/24 08/21/24 Rx adj(PF) 50 mcg/0.5 mL IM susp, kit (Shingrix (PF)) Patient History Medical History Hx of renal calculi passed on own History of diverticulitis Hyperlipidemia Slow to wake up after anesthesia Surgical History H/O colonoscopy 02/12/24, repeat 1 year 2024 S/P cystoscopy with ureteral stent placement s/p stent removal also Hx of right knee surgery osteotomy w/hardware (plate) placement History of esophagogastroduodenoscopy (EGD) History of tooth extraction S/P arthroscopic knee surgery right ACL reconstruction Family History Father Cancer Lung cancer Myocardial infarction Mother Colorectal cancer Stroke Denies family history of Ovarian cancer Prostate cancer Diabetes Breast cancer Social History Smoking Status: Former smoker Tobacco Type: Cigarettes Second Hand Exposure: No; Do You Dip or Chew Tobacco: No; Hx Alcohol Use: Yes (none for at least 20 years or more) Alcohol type: beer Hx Substance Use: No Preferred Language: Greek Communication Ability: Effective Visual Impairment: Limited Hearing Ability: Normal Senior Game Developer Required: No Beliefs That Will Affect Care: None marital status: Current Living Situation: Spouse current occupational status: retired How many Children do You have: 1 Feels Safe at Home: Yes Childhood Exposure to Second-Hand Smoke: Yes Diet: low carbohydrate and low salt caffeine: Yes during the past year weight has: remained stable Dental Care, Regularly: Yes Physical Activity Frequency: 1-2 Times per Week Seatbelt Use: always Sunscreen Use: No Assistive Devices: None Review of Systems Review of Systems: All systems reviewed & are unremarkable except as noted in HPI & below Physical Exam Constitutional: WD/WN, vitals as above Eyes: no conjunctival abnormality ENMT: Ears: no hearing impairment and no external ear abnormality Mouth: no oropharynx abnormality Neck: + tracheal deviation Respiratory: normal respiratory effort; no respiratory distress and no labored breathing Cardiovascular: Rate/Rhythm: regular rate and regular rhythm Vessels: posterior tibial pulses present Gastrointestinal (Abdomen): At the time of my exam the patient's abdomen was soft, nonrigid, and nondistended. He did not have any guarding. There is no rebound tenderness but patient did have pain with deep palpation which appear to be greatest in the left lower quadrant Musculoskeletal: No calf tenderness. No gross orthopedic abnormalities Skin: no rashes Neurologic: moves all extremities Psychiatric: A+Ox3, euthymic affect Results & Data Vital Signs (Past 12 Hours) Vital Signs Temp Pulse Pulse Resp BP BP Pulse Ox 12/30/24 05:30 64 16 115/78 95 12/30/24 05:00 16 12/30/24 05:00 66 15 126/80 95 12/30/24 04:45 70 16 95 12/30/24 04:30 72 17 136/88 96 12/30/24 03:30 72 12 144/89 H 96 12/30/24 03:27 83 12/30/24 03:25 72 16 147/97 H 97 12/30/24 03:24 70 16 97 12/30/24 03:24 84 16 147/97 H 96 12/30/24 02:40 36.6 C 89 16 138/99 98 O2 Del Method 12/30/24 05:30 Room Air 12/30/24 05:00 12/30/24 05:00 Room Air 12/30/24 04:45 Room Air 12/30/24 04:30 Room Air 12/30/24 03:30 Room Air 12/30/24 03:27 12/30/24 03:25 Room Air 12/30/24 03:24 Room Air 12/30/24 03:24 Room Air 12/30/24 02:40 Room Air PG Care Time/CCT Total # of Minutes Spent Total Time Spent with Patient: Total time spent is greater than 50% in coordination of care (as documented) at patient's floor/unit and/or counseling patient: Coding Level of Care Code 85793 INT INP/OBS CARE 255MIN Diagnoses Diverticulitis K57.92
[2024-12-30] MEDS ORDERED: ONDANSETRON INJ 2 MG/ML 2 ML VIAL IV PRN (07:20)
[2024-12-30] MEDS ORDERED: ACETAMINOPHEN 325 MG TAB PO PRN (07:20)
--- NOTE | 2024-12-30 07:23 | Hospitalist Progress Note ---
Date of Service December 30, 2024 Assessment & Plan (1) Diverticulitis: (2) Abscess of sigmoid colon due to diverticulitis: Plan Pt is a 74yo male with history of diverticulitis, prior perforation in 09/2023 presenting with LLQ pain. Found to have multiple small sigmoid colonic di verticulosis with adjacent moderate fat stranding and loculated fluid collection with internal air focus measuring about 27 x 16 mm- suggestive of diverticulitis. #Abscess of sigmoid colon due to diverticulitis -Keep NPO per GI -LR at 125mL/hr until able to po -Continue Zosyn 4.5gm IV q 8 -Tylenol PRN pain -Zofran PRN nausea - if not improving on the above regime, will do repeat CT scan -General Surgery consultation appreciated DVT ppx: low risk (kurt score 2) and given hx of perf, will defer chemical prophylaxis for now in case condition acutely changes and requires surgical intervention in the next 24 hours Admission and Anticipated Discharge Date Admission Date: December 30, 2024 Supervising Physician Co-Signing Physician Notes Patient was seen and examined independently I discussed the case with Sophia Watkins PGY2 I reviewed pertinent past medical social family history and also the plan of care and agree with the plan of care. Admitted with abdominal pain found to have diverticulitis with a small extraluminal foci of gas consistent with a microperforation admitted to the facility for pain control bowel rest and antibiotics with likely advancement of diet on 12/31 Exam function NABS tender to the left abdomen no rebound or guarding Reviewed labs reviewed CBC and chemistry Continue Zosyn therapy pain control bowel rest with likely advancement of diet quickly Any exceptions will be noted below Subjective Pt seen at bedside this morning. He states he is feeling well so far today. He states his LLQ abdominal pain is mild so far. He states he had his last episode of just diverticulitis in 2019 and in Sep 2023 he had a bowel perforation that was managed without surgery/resection. No nausea or vomiting right now. No chest pain or SOB. No questions at this time. Review of Systems Review of Systems: Per HPI. Physical Exam Physical Exam: General:Alert and oriented, no acute distress, HEENT: Normocephalic, moist oral mucosa, Cardio: Regular rate and rhythm, no murmur, Resp:Lungs clear to auscultation b/l, no wheezes or rhonchi, GI: Soft, nondistended, bowel sounds active Skin: Warm, pink, dry, Results & Data Results & Data Vital Signs (Past 12 Hours) Vital Signs Temp Pulse Pulse Resp BP BP Pulse Ox 12/30/24 06:00 62 15 117/80 94 12/30/24 05:30 64 16 115/78 95 12/30/24 05:00 16 12/30/24 05:00 66 15 126/80 95 12/30/24 04:45 70 16 95 12/30/24 04:30 72 17 136/88 96 12/30/24 03:30 72 12 144/89 H 96 12/30/24 03:27 83 12/30/24 03:25 72 16 147/97 H 97 12/30/24 03:24 70 16 97 12/30/24 03:24 84 16 147/97 H 96 12/30/24 02:40 36.6 C 89 16 138/99 98 O2 Del Method 12/30/24 06:00 Room Air 12/30/24 05:30 Room Air 12/30/24 05:00 12/30/24 05:00 Room Air 12/30/24 04:45 Room Air 12/30/24 04:30 Room Air 12/30/24 03:30 Room Air 12/30/24 03:27 12/30/24 03:25 Room Air 12/30/24 03:24 Room Air 12/30/24 03:24 Room Air 12/30/24 02:40 Room Air Resident Activity Tracking Resident Involvement: Resident Care Provided Care Provided: Adult Hospital Medicine
[2024-12-30] MEDS: LACTATED RINGER'S 1,000 ML IV SCH (08:12)
[2024-12-30] MEDS: PIPERACILLIN/TAZOBACTAM 4.5 GM/100 ML BAG IV SCH (10:36)
[2024-12-30] MEDS: ACETAMINOPHEN 1,000 MG/100 ML VIAL IV PRN (14:51)
[2024-12-30] MEDS: ASPIRIN 81 MG ECTAB PO SCH (20:11)
[2024-12-31] MEDS: KETOROLAC TROMETHAMINE 15 MG/ML VIAL IV ONE (04:18)
[2024-12-31 06:50] LABS: Hematocrit (blood only) 41.1 % (42.0-52.0); Hemoglobin 14.5 g/dl (14.0-18.0); Mean Corpuscular Hgb Conc 35.3 g/dL (32.0-36.0); Mean Corpuscular Volume 93.4 fL (80.0-100.0); Mean Platelet Volume 9.1 fL (9.4-12.4); Platelet Count 212 K/uL (130-400); RDW Coefficient of Variation 11.9 % (11.5-14.5); White Blood Count 5.81 K/ul (4.8-10.8)
--- NOTE | 2024-12-31 06:57 | Hospitalist Progress Note ---
Date of Service December 31, 2024 Assessment & Plan (1) Diverticulitis: (2) Abscess of sigmoid colon due to diverticulitis: Plan Pt is a 74yo male with history of diverticulitis, prior perforation in 09/2023 presenting with LLQ pain. Found to have multiple small sigmoid colonic di verticulosis with adjacent moderate fat stranding and loculated fluid collection with internal air focus measuring about 27 x 16 mm- suggestive of diverticulitis. #Abscess of sigmoid colon due to diverticulitis -LR at 125mL/hr until able to po well, so may discontinue later today or tomorrow -Continue Zosyn 4.5gm IV q 8 -Tylenol PRN pain, Zofran PRN nausea - if not improving on the above regime, will do repeat CT scan -General Surgery consultation appreciated; to start clear liquid diet today - labs and vitals stable overnight/this morning #Cluster headache - hx of these in the past, allergy noted to sumatriptan and topamax - relieved with toradol, will continue to montior DVT ppx: low risk (kurt score 2) and given hx of perf, will defer chemical prophylaxis for now in case condition acutely changes and requires surgical intervention in the next 24 hours Admission and Anticipated Discharge Date Admission Date: December 30, 2024 Supervising Physician Co-Signing Physician Notes During face to face encounter, I obtained a physical examination, and interviewed patient regarding his symptoms and discussed hospital stay with patient. I discussed plan of care with Dr. Watkins. I reviewed above note and agree with it except for the following: Patient reports no longer having abdominal pain. He states he is tolerating his diet. currently on clears and will advance to full liquid. If his symptoms continue to improve tomorrow, will advance to a low fiber diet. Possible discharge in afternoon of 11/03 Subjective Pt seen at bedside this morning. He states he is feeling okay right now. He has a hx of cluster headaches and had one flare up overnight for which he was given toradol. He states the pain is mostly gone now and he is generally feeling well. His abdominal pain is very mild today. No nausea or vomiting. No chest pain or SOB. No questions or further complaints at this point in time. Review of Systems Review of Systems: Per HPI. Physical Exam Physical Exam: General:Alert and oriented, no acute distress, HEENT: Normocephalic, moist oral mucosa, Cardio: Regular rate and rhythm, no murmur, Resp:Lungs clear to auscultation b/l, no wheezes or rhonchi, GI: Soft, nondistended, bowel sounds active, LLQ lightly tender to deep palpation Skin: Warm, pink, dry, Results & Data Results & Data Vital Signs (Past 12 Hours) Vital Signs Temp Pulse Resp BP Pulse Ox O2 Del Method 12/30/24 21:25 36.7 C 66 18 159/85 H 98 Room Air Resident Activity Tracking Resident Involvement: Resident Care Provided Care Provided: Adult Hospital Medicine
[2024-12-31 07:30] LABS: BUN Creatinine Ratio 13.4 (10-20); Calcium 9.1 mg/dl (8.6-10.3); Creatinine Clr Calc Pharmacy 86.7 ml/min; Potassium 3.8 mmol/L (3.5-5.1)
--- NOTE | 2024-12-31 07:53 | Surgery Progress Note ---
Date of Service December 31, 2024 Assessment & Plan (1) Abscess of sigmoid colon due to diverticulitis: Plan: pt denies abd pain , non tender to palpation denies n/v, c/o GOMEZ was given Toradol/oxygen via NC with some relief, reports GOMEZ at home and takes Tylenol arthritis VSS, wbc wnl +flatus Will trial clear liquids this AM Continue IV ABX Admission and Anticipated Discharge Date Admission Date: December 30, 2024 Supervising Physician Co-Signing Physician Notes Patient seen and examined, labs reviewed, agree with above. Admitted with recurrent diverticulitis with large tic versus small developing abscess. Overall feeling better, tolerated clear liquids overnight. Passing gas. Still little sore. On exam he is afebrile with stable vitals, his abdomen is soft, nontender, nondistended. WBC normal. Will advance to full liquid diet, may advance to low fiber tonight if tolerates, potential discharge on oral antibiotics over the next 24 to 48 hours. Can follow-up as an outpatient in 6 to 8 weeks to discuss possible elective resection at some point. Review of Systems Constitutional: no fever and no chills Respiratory: no dyspnea Cardiovascular: no chest pain Gastrointestinal: no abdominal pain, no nausea and no vomiting Musculoskeletal: no muscle weakness Neurologic: + headache(s) Physical Exam Constitutional: cooperative and comfortable; no acute distress Respiratory: normal respiratory effort and able to speak in complete sentences; no respiratory distress Cardiovascular: Rate/Rhythm: regular rate Gastrointestinal (Abdomen): Inspection/Auscultation: abdomen not distended Percussion/Palpation: abdomen soft; abdomen nontender Psychiatric: Orientation: alert and oriented x 3 Results & Data Vital Signs (Past 12 Hours) Vital Signs Temp Pulse Resp BP BP Pulse Ox O2 Del Method 12/31/24 07:21 97.9 F 69 16 131/78 98 Nasal Cannula 12/30/24 21:25 98.1 F 66 18 159/85 H 98 Room Air Results CBC w Diff Results: RBC 4.40 M/uL (4.70-6.10) L 12/31/24 WBC 5.81 K/ul (4.8-10.8) 12/31/24 Hgb 14.5 g/dl (14.0-18.0) 12/31/24 Hct 41.1 % (42.0-52.0) L 12/31/24 MCV 93.4 fL (80.0-100.0) 12/31/24 MCH 33.0 pg (25.0-34.0) 12/31/24 MCHC 35.3 g/dL (32.0-36.0) 12/31/24 RDW Standard Deviation 41.0 fL (36.4-46.3) 12/31/24 RDW Coefficient of Variation 11.9 % (11.5-14.5) 12/31/24 Plt Count 212 K/uL (130-400) 12/31/24 MPV 9.1 fL (9.4-12.4) L 12/31/24 Neutrophils (%) (Auto) 74.7 % 12/30/24 Lymphocytes (%) (Auto) 15.8 % 12/30/24 Monocytes # (Auto) 0.73 K/uL (0.11-0.59) H 12/30/24 Eosinophils # (Auto) 0.09 K/uL (0.00-0.50) 12/30/24 Immature Granulocyte % (Auto) 0.3 % 12/30/24 Neutrophils # (Auto) 6.81 K/uL (1.40-6.50) H 12/30/24 Lymphocytes # (Auto) 1.44 K/uL (1.20-3.40) 12/30/24 Monocytes # (Auto) 0.73 K/uL (0.11-0.59) H 12/30/24 Eosinophils # (Auto) 0.09 K/uL (0.00-0.50) 12/30/24 Basophils # (Auto) 0.02 K/uL (0.00-0.20) 12/30/24 Immature Granulocyte # (Auto) 0.03 K/uL (0.01-0.20) 5 PG Care Time/CCT Total # of Minutes Spent Total Time Spent with Patient: Total time spent is greater than 50% in coordination of care (as documented) at patient's floor/unit and/or counseling patient: Coding Level of Care Code 01910 SUB INP/OBS CARE 11/21MIN Diagnoses Abscess of sigmoid colon due to diverticulitis K57.20
[2024-12-31] MEDS: POLYETHYLENE (MIRALAX) 17 GM PACK PO SCH (14:46)
[2024-12-31] MEDS: DOCUSATE SODIUM 100 MG CAP PO SCH (20:14)
[2024-12-31 20:19] VITALS: TEMP 98.2
--- NOTE | 2024-12-31 22:33 | Billing Data ---
Date of Service December 31, 2024 Coding Level of Care Code 53204 SUB INP/OBS CARE MIN
[2025-01-01] MEDS: ACETAMINOPHEN 325 MG TAB PO PRN (04:39)
--- NOTE | 2025-01-01 07:25 | Hospitalist Progress Note ---
Date of Service January 01, 2025 Assessment & Plan (1) Diverticulitis: (2) Abscess of sigmoid colon due to diverticulitis: Plan Pt is a 74yo male with history of diverticulitis, prior perforation in 09/2023 presenting with LLQ pain. Found to have multiple small sigmoid colonic di verticulosis with adjacent moderate fat stranding and loculated fluid collection with internal air focus measuring about 27 x 16 mm- suggestive of diverticulitis. #Abscess of sigmoid colon due to diverticulitis -LR at 125mL/hr until able to po well, so may discontinue later today or tomorrow -Continue Zosyn 4.5gm IV q 8 -Tylenol PRN pain, Zofran PRN nausea - if not improving on the above regime, will do repeat CT scan -General Surgery consultation appreciated; to start clear liquid diet today - labs and vitals stable overnight/this morning #Cluster headache - hx of these in the past, allergy noted to sumatriptan and topamax - relieved with toradol, will continue to montior DVT ppx: low risk (kurt score 2) and given hx of perf, will defer chemical prophylaxis for now in case condition acutely changes and requires surgical intervention in the next 24 hours Admission and Anticipated Discharge Date Admission Date: December 30, 2024 Results & Data Results & Data Vital Signs (Past 12 Hours) Vital Signs Temp Pulse Resp BP Pulse Ox O2 Del Method 12/31/24 20:18 36.8 C 63 16 142/82 H 96 Room Air
[2025-01-01 08:16] VITALS: BP 151/83; RESP 18; O2SAT 97
--- NOTE | 2025-01-01 08:21 | Surgery Progress Note ---
Date of Service January 01, 2025 Assessment & Plan (1) Diverticulitis: Plan: pt denies abd pain , slightly TTP lower quadrants denies n/v, VSS, afebrile , labs not drawn this AM yet +flatus , +BM tolerated full liquids , advance to low fiber possible d/c later today if tolerates diet without increase in abd pain and labs wnl will need oral Abx will need op colonoscopy in 6-8 weeks follow up gen surg op to discuss elective resection Dr Del Rio covering weekend Admission and Anticipated Discharge Date Admission Date: December 30, 2024 Supervising Physician Co-Signing Physician Notes Patient seen and examined, labs reviewed, agree with above. Admitted with diverticulitis with large tic versus small developing abscess. Continues to feel better, no pain, abdomen soft, nondistended, nontender. WBC normal. Tolerating low fiber diet. Okay to DC to home on oral antibiotics, 10 to 14 days course from admission. Patient had colonoscopy in January 2024 for similar episode of free air in 2022, therefore does not likely need repeat colonoscopy. He can follow-up with me in a few weeks to discuss possible elective sigmoidectomy. Continue low fiber diet for 4 to 6 weeks. Subjective pt denies abd pain at rest , no n/v +flatus +bm Review of Systems Constitutional: no fever and no chills Respiratory: no dyspnea Cardiovascular: no chest pain Gastrointestinal: no abdominal pain, no nausea and no vomiting Musculoskeletal: no muscle weakness Neurologic: + headache(s) Physical Exam Constitutional: cooperative and comfortable; no acute distress Respiratory: normal respiratory effort and able to speak in complete sentences; no respiratory distress Cardiovascular: Rate/Rhythm: regular rate Gastrointestinal (Abdomen): Inspection/Auscultation: abdomen not distended Percussion/Palpation: abdomen soft; abdomen nontender Psychiatric: Orientation: alert and oriented x 3 Results & Data Vital Signs (Past 12 Hours) Vital Signs Temp Pulse Resp BP Pulse Ox O2 Del Method 12/31/24 20:18 98.2 F 63 16 142/82 H 96 Room Air PG Care Time/CCT Total # of Minutes Spent Total Time Spent with Patient: Total time spent is greater than 50% in coordination of care (as documented) at patient's floor/unit and/or counseling patient: Coding Level of Care Code 59353 SUB INP/OBS CARE 11/21MIN Diagnoses Diverticulitis K57.92
[2025-01-01 10:17] LABS: Basophils # (auto) 0.02 K/uL (0.00-0.20); Basophils % (auto) 0.3 %; Eosinophils % (auto) 1.3 %; Hematocrit (blood only) 42.5 % (42.0-52.0); Hemoglobin 15.1 g/dl (14.0-18.0); Immature Granulocytes # (auto) 0.01 K/uL (0.01-0.20); Immature Granulocytes % (auto) 0.1 %; Lymphocytes % (auto) 14.8 %; Mean Corpuscular Hemoglobin 33.6 pg (25.0-34.0); Mean Corpuscular Hgb Conc 35.5 g/dL (32.0-36.0); Mean Corpuscular Volume 94.4 fL (80.0-100.0); Mean Platelet Volume 9.5 fL (9.4-12.4); Monocytes # (auto) 0.68 K/uL (0.11-0.59); Monocytes % (auto) 9.2 %; Neutrophils % (auto) 74.3 %; Platelet Count 232 K/uL (130-400); RDW Coefficient of Variation 11.8 % (11.5-14.5); White Blood Count 7.41 K/ul (4.8-10.8)
[2025-01-01 10:29] LABS: Albumin Globulin Ratio 1.4 (0.9-2); Albumin Level 3.9 gm/dl (3.4-5.0); BUN Creatinine Ratio 10.8 (10-20); Bilirubin,Total 1.1 mg/dl (0.2-1.0); Calcium 9.4 mg/dl (8.6-10.3); Creatinine Clr Calc Pharmacy 85.7 ml/min; Globulin 2.8 gm/dl (2.5-4.0); Potassium 3.7 mmol/L (3.5-5.1); Total Protein 6.7 gm/dl (6.0-8.3)
--- NOTE | 2025-01-01 14:27 | Discharge Summary ---
Date of Service January 01, 2025 Admission HPI Per Admitting Provider Robinson Walls is a 74yo male presenting with history of diverticulitis with perforation in September 2023 presenting with LLQ abdominal pain. Patient had been in his usual state of health. Developed fairly constant LLLQ abdominal pain on the evening of 12/29/24 around 18:00. Patient denies fever, chills, nausea, vomiting, diarrhea, abdominal distention or bleeding. No additional complaints at this time. In the ER he is afebrile, HD stable ER Course: Zosyn 4.5gm Principal Diagnosis Diverticulitis Discharge Exam Constitutional: well-appearing, no acute distress HEENT: NCAT, no conjunctival injection CV: regular rhythm, no murmur appreciated, extremities well-perfused, no LE edema Resp: CTABL, no wheezes/rales/rhonchi appreciated, no increased work of breathing GI: soft, nondistended, nontender, BS normoactive MSK: no gross deformities appreciated Skin: warm, dry, no rash appreciated Neuro: alert, oriented, no focal neurologic deficit appreciated Discharge Data Allergies Allergy/AdvReac Type Severity Reaction Status Date / Time duloxetine Allergy Intermediate Headache Verified 08/21/24 08:35 sumatriptan Allergy Intermediate Headache Verified 08/21/24 08:35 topiramate [From Topamax] Allergy Unknown Change in Verified 08/21/24 08:35 mental status ciprofloxacin [From Cipro] AdvReac Muscle Pain Verified 08/21/24 08:35 Consultations 12/30/24 06:09 ED Decision to Admit Stat 12/30/24 07:20 Consult General Surgery Routine Ordered Studies 12/30/24 02:45 CT abd pelvis IV con only Stat Hospital Course (1) Diverticulitis: (2) Abscess of sigmoid colon due to diverticulitis: Plan Pt is a 74yo male with history of diverticulitis, prior perforation in 09/2023 presenting with LLQ pain. Found to have multiple small sigmoid colonic diverticulosis with adjacent moderate fat stranding and loculated fluid collection with internal air focus measuring about 27 x 16 mm- suggestive of diverticulitis. #Abscess of sigmoid colon due to diverticulitis -Tolerated good PO intake w/out abdominal pain -Transition from Zosyn to Augmentin TID for a total antibiotic course of 14 days - has PCP f/u 01/06 -General Surgery saw pt and will plan for OP f/u to discuss elective surgery - will need op colonoscopy in 6-8 weeks #Cluster headache - hx of these in the past, allergy noted to sumatriptan and topamax - relieved with Toradol/oxygen Total Time Total Time Spent Total Time Spent (In Minutes): See attending attestation Discharge Plan Discharge Items Patient Disposition: Home - Self-Care Reason For Visit: DIVERTICULITIS WITH COLLECTION Discharge Diagnosis: Diverticultiits Activity: Per Instructions section Non-emergency contact: Primary Care Provider Call non-emergency contact if: you have any medication questions and your symptoms worsen Follow-up/Referrals: Tavon Ellis DO, FACS [Physician] - (you may follow up in the office within 6-8 weeks to discuss elective resection of your sigmoid colon) Jeremy Del Rio DO [Primary Care Provider] - 01/06/25 11:30 am Diet: Low Fiber Addtl Attending Provider Instructions: You were admitted with diverticulitis with a small abscess. We have been treating you with IV antibiotics. The surgeons saw you and did not feel surgery was needed. We are going to transition you to oral antibiotics. We are going to send a prescription for Augmentin to the pharmacy. You should take it 3 times per day for the next 11 days. Your next dose is due this evening. You have an appointment for follow up with your primary care doctor on 01/06. You should also follow up with the surgeons-> if you don't hear from their office at the beginning of next week you should call to make an appointment. Pending Studies at Discharge: No Stand-Alone Forms: [facility], Sm[facility] Cessation Medications and DC Order Prescriptions: New amoxicillin-pot clavulanate 875-125 mg tablet 1 tab PO TID 11 Days Qty: 33 0RF Continued cranberry extract-vitamin C [Azo Cranberry Plus Vit C] 250-60 mg capsule 1 cap PO QPM Rx Instructions: Unable to verify OTC meds at this date/time. cyclobenzaprine 10 mg tablet 10 mg PO BID PRN (Reason: muscle spasm) Qty: 60 2RF multivitamin [Daily Multi-Vitamin] tablet 1 tab PO QPM Rx Instructions: Unable to verify OTC meds at this date/time. aspirin 81 mg tablet,delayed release (DR/EC) 81 mg PO QPM Patient Comments: w/lunch or after Rx Instructions: Unable to verify OTC meds at this date/time. acetaminophen [Tylenol 8 Hour] 650 mg Tablet Extended Release 650 mg PO Q8H PRN (Reason: Pain) Rx Instructions: Unable to verify OTC meds at this date/time. dimenhydrinate [Motion Sickness] 50 mg Tablet 50 mg PO Q8H PRN (Reason: Motion Sickness) Qty: 0 Rx Instructions: Unable to verify OTC meds at this date/time. cholecalciferol (vitamin D3) [Vitamin D3] 50 mcg (2,000 unit) Capsule 50 mcg PO Q7D Rx Instructions: Unable to verify OTC meds at this date/time. elderberry fruit 350 mg Capsule 350 mg PO DAILY Rx Instructions: Unable to verify OTC meds at this date/time. Discharge Orders: Discharge Order (Routine); Ordered 01/01/25 Ordered By: Eli Alonso Admission Data Admit Date/Time: 12/30/24 17:59 Attending Provider: Kyle Gudino Admit Provider: Jeremy Villanueva Primary Care Provider: Jeremy Del Rio Other Providers: Kristen Jeronimo; Tavon Ellis
[2025-01-01 15:09] VITALS: PULSE 84
== END 2025-01-01 15:58 | disposition home or self-care (01) | DRG 392 ==
LOC: SUATTDRO → ED 02:38 → EDINP 02:38 → SUATTDRO 06:13 → 3W 13:18 → SUATTDRO 17:59